=== PATIENT | female | born 1940 | race African-American/Black ===

== ENCOUNTER → 2016-10-26 | Outpatient (CLI) | payer MEDICARE ==
--- NOTE | 2016-10-26 16:09 | WOMENS IMAGING REPORT ---
EXAM DESCRIPTION: BILAT SCREENING MAMMO W/CAD COMPLETED DATE/TIME: 10/26/2016 10:50 am REASON FOR STUDY: ROUTINE SCREENING; Z12.31 Z12.31 ENCNTR SCREEN MAMMOGRAM FOR MALIGNANT NEOPLASM O F CHRISTIAN COMPARISON: Multiple since 2008 TECHNIQUE: Standard craniocaudal and mediolateral oblique views of each breast recorded using HopeLaba l acquisition. LIMITATIONS: None. FINDINGS: Findings present which are benign by mammographic criteria. No suspicious masses, calcifi cations or architectural distortion. Pertinent benign findings: Benign left breast skin calcifications Read with the assistance of CAD. .[facility] - R2 Cenova Version 1.3 .[facility] - R2 Cenova Version 1.3 .[facility] - R2 Cenova Version 2.4 .[facility] - R2 Cenova Version 2.4 .[facility] - R2 Foreign Bank[employer] Teller Version 9.2 Benign mammographic findings may include one or more of the following: Smooth masses, popcorn/rim/co arse calcifications, asymmetries, post-procedure changes, and lesions with long-standing stability. IMPRESSION: BENIGN MAMMOGRAPHIC FINDINGS. BIRADS 2 BREAST DENSITY: b. There are scattered areas of fibroglandular density. BIRAD: 2 BENIGN FINDING(S) RECOMMENDATION: ROUTINE SCREENING COMMENT: The patient has been notified of the results by letter per SA requirements. Additional no tification policies are in place for contacting patient with suspicious or incomplete findings. Quality ID #[id number]: The [employer] recommends an annual screening mammogram for women aged 40 years or over. This facility utilizes a reminder system to ensure that all patients receive reminder letters, and/or direct phone calls for appointments. This includes reminders for routine scr eening mammograms, diagnostic mammograms, or other Breast Imaging Interventions when appropriate. Th is patient will be placed in the appropriate reminder system. The [employer] (ACR) has developed recommendations for screening MRI of the breast s in certain patient populations, to be used in conjunction with mammography. Breast MRI surveillanc e may be appropriate for women with more than 20% lifetime risk of developing breast cancer as deter mined by genetic testing, significant family history of the disease, or history of mantle radiation f or Hodgkins Disease. ACR Practice Guidelines 2008. TECHNICAL DOCUMENTATION: FINDING NUMBER: (1) ASSESSMENT: (1) JOB ID: [id number] [employer]- All Rights Reserved
== END ==
LOC: WI 10:10
PROVIDERS: ATTEND Internal Medicine
DX: Z12.31 Encounter for screening mammogram for malignant neoplasm of breast (principal)
CPT/HCPCS: 77067; G0202

== ENCOUNTER → 2017-03-09 | Outpatient (CLI) | payer MEDICARE ==
--- NOTE | 2017-03-09 15:27 | RADIOLOGY REPORT (SQ) ---
EXAM DESCRIPTION: CT ABD/PELVIS WITH IV ORAL COMPLETED DATE/TIME: 03/09/2017 2:21 pm REASON FOR STUDY: ABDOMINAL PAIN GENERALIZED/GASTROPARESIS R10.84 GENERALIZED ABDOMINAL PAIN K31.84 GASTROPARESIS K57.30 DIVERTICULOSIS OF LG INT W/O PERFORATION OR ABSCESS W/O BLE COMPARISON: None. TECHNIQUE: CT scan of the abdomen and pelvis performed using helical scanning technique with dynamic intravenous contrast injection. Oral contrast. Images reviewed with lung, soft tissue, and bone win dows. Reconstructed coronal and sagittal MPR images reviewed. Delayed images for evaluation of the ur inary system also acquired. All images stored on PACS. All CT scanners at this facility use dose modulation, iterative reconstruction, and/or weight based d osing when appropriate to reduce radiation dose to as low as reasonably achievable (ALARA). [facility]: Dose Right [facility]: CareDose [facility]: Dose Right [facility]: Teradose 4D [facility]: [email or web address] CONTRAST TYPE AND DOSE: contrast/concentration: Isovue mg/ml; Total Contrast Delivered: 79.0 ml; To janes Saline Delivered: 68.0 ml RENAL FUNCTION: Creatinine 1.3 RADIATION DOSE: Up-to-date CT equipment and radiation dose reduction techniques were employed. CTDIv ol: 9.5 - 13.6 mGy. DLP: 1170 mGy-cm.. LIMITATIONS: None. FINDINGS: LOWER CHEST: No significant findings. No nodules or infiltrates. LIVER: Normal size. No masses. No dilated ducts. SPLEEN: Normal size. No focal lesions. PANCREAS: No masses. No significant calcifications. No adjacent inflammation or peripancreatic fluid collections. Pancreatic duct not dilated. GALLBLADDER: No identified stones by CT criteria. No inflammatory changes to suggest cholecystitis. ADRENAL GLANDS: No significant masses or asymmetry. RIGHT KIDNEY AND URETER: No solid masses. Small cortical cysts are present. No significant calcifi cations. No hydronephrosis or hydroureter. LEFT KIDNEY AND URETER: No solid masses. There is a 4 cm cortical cyst as well as some smaller corti cecy cysts. No significant calcifications. No hydronephrosis or hydroureter. AORTA AND VESSELS: No aneurysm. Atherosclerosis with no significant stenoses of celiac, SMA, and jannet al arteries RETROPERITONEUM: No retroperitoneal adenopathy, hemorrhage or masses. BOWEL AND PERITONEAL CAVITY: Considerable fecal material is present in the colon. APPENDIX: Normal. PELVIS: No mass. No free fluid. Normal bladder. ABDOMINAL WALL: No masses. No hernias. BONES: Lumbar scoliosis. No osseous lesions are seen. OTHER: No other significant finding. IMPRESSION: There is considerable retained fecal material suggestive of constipation. Findings as d escribed. TECHNICAL DOCUMENTATION: JOB ID: [id number] Quality ID # [id number]: Final reports with documentation of one or more dose reduction techniques (e.g., Au tomated exposure control, adjustment of the mA and/or kV according to patient size, use of iterative reconstruction technique) 2010 [employer]- All Rights Reserved
== END ==
LOC: RAD 13:47
PROVIDERS: ATTEND Internal Medicine Gastroenterology
DX: R10.84 Generalized abdominal pain (principal); K31.84 Gastroparesis; K57.30 Diverticulosis of large intestine without perforation or abscess without bleeding; R63.4 Abnormal weight loss
CPT/HCPCS: 74177; 82565

== ENCOUNTER 2017-05-17 13:49 | Observation (INO) | payer MEDICARE ==
[2017-05-17] MEDS ORDERED: IPRATROPIUM/ALBUTEROL 0.5-2.5 MG/3 ML AMPUL NEB ONE (15:28)
--- NOTE | 2017-05-17 15:30 | ER Document Report ---
ED Medical Screen (RME) - General Chief Complaint: Cough Stated Complaint: LIGHTHEADED,COUGH,CONGESTION Time Seen by Provider: 05/17/17 15:22 Mode of Arrival: Ambulatory Information source: Patient Notes: 76-year-old female presents with productive greenish white cough of 3 day duration. I have greeted and performed a rapid initial assessment of this patient. A comprehensive ED assessment and evaluation of the patient, analysis of test results and completion of the medical decision making process will be conducted by additional ED providers. PHYSICAL EXAMINATION: GENERAL: Well-appearing, well-nourished and in no acute distress. HEAD: Atraumatic, normocephalic. EYES: Pupils equal round extraocular movements intact, conjunctiva are normal. ENT: Nares patent NECK: Normal range of motion LUNGS: coarse rhonchi bilateral Musculoskeletal: Normal range of motion NEUROLOGICAL: Normal speech, normal gait. PSYCH: Normal mood, normal affect. SKIN: Warm, Dry, normal turgor, no rashes or lesions noted. TRAVEL OUTSIDE OF THE [place] IN LAST 30 DAYS: No - Related Data Allergies/Adverse Reactions: Penicillins Allergy (Mild, Verified 05/17/17 15:24) rash Sulfa (Sulfonamide Antibiotics) Allergy (Mild, Verified 05/17/17 15:24) rash latex Allergy (Mild, Uncoded 05/17/17 15:24) blistered skin,ICHING Past Medical History - Past Medical History Cardiac Medical History: Reports: Hx Heart Attack - 12/03/2002, Hx Hypercholesterolemia, Hx Hypertension - medicated Denies: Hx Coronary Artery Disease Pulmonary Medical History: Denies: Hx Asthma, Hx Bronchitis, Hx COPD, Hx Pneumonia Neurological Medical History: Denies: Hx Cerebrovascular Accident, Hx Seizures Endocrine Medical History: Reports: Hx Diabetes Mellitus Type 2 GI Medical History: Denies: Hx Hepatitis, Hx Hiatal Hernia, Hx Ulcer Musculoskeltal Medical History: Reports Hx Arthritis Infectious Medical History: Denies: Hx Hepatitis Past Surgical History: Reports: Hx Cardiac Catheterization - defibrillator, stentsx3, Hx Cholecystectomy, Hx Hysterectomy, Hx Thyroid Surgery - partial. Denies: Hx Mastectomy, Hx Open Heart Surgery, Hx Pacemaker - Immunizations Hx Diphtheria, Pertussis, Tetanus Vaccination: No Physical Exam - Vital signs Vitals: Temp Pulse Resp BP Pulse Ox 98.9 F 57 L 20 137/75 H 96 05/17/17 14:01 05/17/17 14:01 05/17/17 14:01 05/17/17 14:01 05/17/17 14:01 Course - Vital Signs Vital signs: Temp Pulse Resp BP Pulse Ox 98.9 F 57 L 20 137/75 H 96 05/17/17 14:01 05/17/17 14:01 05/17/17 14:01 05/17/17 14:01 05/17/17 14:01
[2017-05-17] MEDS ORDERED: NITROGLYCERIN 0.4 MG/TAB 25 TAB/BOTTLE SL PRN (15:50)
[2017-05-17] MEDS ORDERED: ASPIRIN 81 MG TABLET, CHEWABLE PO ONE (15:50)
--- NOTE | 2017-05-17 15:52 | ER Document Report ---
ED General - General Mode of Arrival: Ambulatory Information source: Patient TRAVEL OUTSIDE OF THE [place] IN LAST 30 DAYS: No - HPI Patient complains to provider of: Chest Pressure Onset: Yesterday Quality of pain: Fullness, Pressure Associated symptoms: Other - see notes above <JAVIER KAYE - Last Filed: 05/17/17 18:19> <TIRSOANDREYHECTOR - Last Filed: 05/17/17 18:59> - General Chief Complaint: Cough Stated Complaint: LIGHTHEADED,COUGH,CONGESTION Time Seen by Provider: 05/17/17 15:22 Notes: 76 year old female with history of GA (with stents and defibrillator), diabetes mellitus, hyperlipidemia, and hypertension presents to the ED complaining of chest pressure that started yesterday. Patient reports that she took 2 sublingual nitros yesterday for complete pain relief. This morning the patient took an aspirin with her morning medications and reported feeling a racing heart , throat pain and chest pain with cough, and lightheadedness. Patient denies nausea or vomiting. Patient's great-grandchild was seen in the ED last night for pneumonia. Last cardiac stress test 1 year ago. PCP: Dr. Herrera (JAVIER KAYE) - Related Data Allergies/Adverse Reactions: Penicillins Allergy (Mild, Verified 05/17/17 15:24) rash Sulfa (Sulfonamide Antibiotics) Allergy (Mild, Verified 05/17/17 15:24) rash latex Allergy (Mild, Uncoded 05/17/17 15:24) blistered skin,ICHING Past Medical History - General Information source: Patient - Social History Smoking Status: Former Smoker Chew tobacco use (# tins/day): No Frequency of alcohol use: Rare Drug Abuse: None Family History: Reviewed & Not Pertinent Patient has suicidal ideation: No Patient has homicidal ideation: No - Past Medical History Cardiac Medical History: Reports: Hx Heart Attack - 12/03/2002, Hx Hypercholesterolemia, Hx Hypertension - medicated Endocrine Medical History: Reports: Hx Diabetes Mellitus Type 2 Renal/ Medical History: Denies: Hx Peritoneal Dialysis Musculoskeltal Medical History: Reports Hx Arthritis Past Surgical History: Reports: Hx Cardiac Catheterization - defibrillator, stentsx3, Hx Cholecystectomy, Hx Hysterectomy, Hx Thyroid Surgery - partial - Immunizations Hx Diphtheria, Pertussis, Tetanus Vaccination: No <JAVIER KAYE - Last Filed: 05/17/17 18:19> Review of Systems - Review of Systems Constitutional: No symptoms reported EENT: See HPI, Throat pain - with cough Cardiovascular: See HPI, Chest pain - pressure and pain with cough, Heart racing , Lightheaded Respiratory: See HPI, Cough Gastrointestinal: No symptoms reported. denies: Nausea, Vomiting Genitourinary: No symptoms reported Female Genitourinary: No symptoms reported Musculoskeletal: No symptoms reported Skin: No symptoms reported Hematologic/Lymphatic: No symptoms reported Neurological/Psychological: No symptoms reported -: Yes All other systems reviewed and negative <JAVIER KAYE - Last Filed: 05/17/17 18:19> Physical Exam <JAVIER KAYE - Last Filed: 05/17/17 18:19> <HECTOR SPRING - Last Filed: 05/17/17 18:59> - Vital signs Vitals: Temp Pulse Resp BP Pulse Ox 98.9 F 57 L 20 137/75 H 96 05/17/17 14:01 05/17/17 14:01 05/17/17 14:01 05/17/17 14:01 05/17/17 14:01 - Notes Notes: GENERAL: Alert, interacts well. No acute distress. HEAD: Normocephalic, atraumatic. EYES: Pupils equal, round, and reactive to light. Extraocular movements intact. ENT: Oral mucosa moist, tongue midline. NECK: Full range of motion. Supple. Trachea midline. LUNGS: Clear to auscultation bilaterally, no wheezes, rales, or rhonchi. No respiratory distress. HEART: Mild tachycardia with occasional ectopic beats. No murmurs, gallops, or rubs. ABDOMEN: Soft, non-tender. Non-distended. Bowel sounds present in all 4 quadrants. EXTREMITIES: Moves all 4 extremities spontaneously. No edema, radial and dorsalis pedis pulses 2/4 bilaterally. No cyanosis. NEUROLOGICAL: Alert and oriented x3. Normal speech. PSYCH: Normal affect, normal mood. SKIN: Warm, dry, normal turgor. No rashes or lesions noted. (JAVIER KAYE) Course - Laboratory Result Diagrams: 05/17/17 16:40 05/17/17 16:40 - Consults Dr. Evans Time consulted: 18:06 <JAVIER KAYE - Last Filed: 05/17/17 18:19> - Laboratory Result Diagrams: 05/17/17 16:40 05/17/17 16:40 <HECTOR SPRING - Last Filed: 05/17/17 18:59> - Re-evaluation Re-evalutation: 05/17/17 18:16 CBC shows leukocytosis of 11.6, INR slightly prolonged, chemistries grossly unremarkable, initial set of cardiac enzymes negative, influenza A and B are negative, chest x-ray does not show any pneumonia. Initial EKG is nonischemic though it does have several PVCs. Given patient's cardiac history age and risk factors I do feel it would be prudent to observe this patient overnight to rule out acute coronary syndrome. I discussed this with Dr. Herrera and he agrees. No current indication for steroids or breathing treatments as there is no wheezing. Patient has been given aspirin and will be given a single dose of Lovenox. (HECTOR SPRING) - Vital Signs Vital signs: Temp Pulse Resp BP Pulse Ox 98.9 F 57 L 21 H 147/63 H 99 05/17/17 14:01 05/17/17 14:01 05/17/17 18:01 05/17/17 18:01 05/17/17 18:01 - Laboratory Laboratory results interpreted by me: 05/17/17 05/17/17 16:40 16:40 WBC 11.6 H MCV 98 H RDW 14.9 H Lymphocytes % 11.9 L Absolute Neutrophils 8.9 H Chloride 97 L Carbon Dioxide 33 H Creatine Kinase 25 L - EKG Interpretation by Me Additional EKG results interpreted by me: 05/17/17 18:17 EKG shows sinus rhythm at a rate of 83, left axis deviation, normal intervals, unifocal PVCs, no ST segment elevations or depressions, no abnormal T-wave inversions per my interpretation. (HECTOR SPRING) - Consults Dr. Evans Reason for consultation: 05/17/17 18:06 Dr. Herrera is paged. 05/17/17 18:11 Patient was discussed with Dr. Herrera and agrees to admit the patient. (JAVIER KAYE) Discharge <JAVIER KAYE - Last Filed: 05/17/17 18:19> - Discharge Admitting Provider: [facility] Unit Admitted: Telemetry <HECTOR SPRING - Last Filed: 05/17/17 18:59> - Discharge Clinical Impression: Chest pain, rule out acute myocardial infarction Condition: Stable Disposition: ADMITTED OBSERVATION Scribe Attestation: 05/17/17 18:59 I personally performed the services described in the documentation, reviewed and edited the documentation which was dictated to the scribe in my presence, and it accurately records my words and actions. (HECTOR SPRING) Scribe Documentation - Scribe Written by Scribe:: Ryan Osullivan, 05/17/2017 1631 acting as scribe for :: Tracie <JAVIER KAYE - Last Filed: 05/17/17 18:19>
--- NOTE | 2017-05-17 15:56 | RADIOLOGY REPORT (SQ) ---
EXAM DESCRIPTION: CHEST PA/LAT COMPLETED DATE/TIME: 05/17/2017 3:47 pm REASON FOR STUDY: cough congestion COMPARISON: 01/26/2015. EXAM PARAMETERS: NUMBER OF VIEWS: two views TECHNIQUE: Digital Frontal and Lateral radiographic views of the chest acquired. RADIATION DOSE: NA LIMITATIONS: none FINDINGS: LUNGS AND PLEURA: No opacities, masses or pneumothorax. No pleural effusion. MEDIASTINUM AND HILAR STRUCTURES: No masses or contour abnormalities. HEART AND VASCULAR STRUCTURES: Heart normal size. No evidence for failure. BONES: No acute findings. Chronic changes in the spine with scoliosis. HARDWARE: Defibrillator. Surgical clips in the soft tissues of the neck. OTHER: No other significant finding. IMPRESSION: NO SIGNIFICANT RADIOGRAPHIC FINDING IN THE CHEST. TECHNICAL DOCUMENTATION: JOB ID: [id number] [employer]- All Rights Reserved
[2017-05-17 16:01] LABS: A TYPE INFLUENZA AG NEGATIVE (NEGATIVE); B INFLUENZA AG NEGATIVE (NEGATIVE)
[2017-05-17 16:56] LABS: ABSOLUTE BASOPHILS # (AUTO) 0.1 10^3/uL (0.0-0.2); ABSOLUTE EOSINOPHILS # (AUTO) 0.1 10^3/uL (0.0-0.6); ABSOLUTE LYMPHOCYTES (AUTO) 1.4 10^3/uL (0.5-4.7); ABSOLUTE MONOCYTES (AUTO) 1.2 10^3/uL (0.1-1.4); ABSOLUTE NEUT (AUTO) 8.9 10^3/uL (1.7-8.2); BASOPHILS % (AUTO) 0.5 % (0-2); EOSINOPHILS % (AUTO) 1.2 % (0-6); HEMATOCRIT 37.2 % (36.0-47.0); HEMOGLOBIN 12.4 g/dL (12.0-15.5); LYMPHOCYTES % (AUTO) 11.9 % (13-45); MEAN CORPUSCULAR HEMOGLOBIN 32.4 pg (27.0-33.4); MEAN CORPUSCULAR HGB CONC 33.2 g/dL (32.0-36.0); MEAN CORPUSCULAR VOLUME 98 fl (80-97); MONOCYTES % (AUTO) 10.3 % (3-13); PLATELET COUNT 194 10^3/uL (150-450); RED BLOOD COUNT 3.81 10^6/uL (3.72-5.28); RED CELL DISTRIBUTION WIDTH 14.9 % (11.5-14.0); SEGMENTED NEUTROPHILS % (AUTO) 76.1 % (42-78); TOTAL CELLS COUNTED % (AUTO) 100 %; WHITE BLOOD COUNT 11.6 10^3/uL (4.0-10.5)
[2017-05-17 17:01] LABS: INTERNATIONAL RATION (INR) 1.14; PROTHROMBIN TIME 15.4 SEC (11.4-15.4)
[2017-05-17 17:16] LABS: ALANINE AMINOTRANSFERASE 17 U/L (9-52); ALBUMIN 4.1 g/dL (3.5-5.0); ALKALINE PHOSPHATASE 49 U/L (38-126); ANION GAP 11 (5-19); ASPARTATE AMINO TRANSFERASE 20 U/L (14-36); BILIRUBIN,DIRECT 0.3 mg/dL (0.0-0.4); BILIRUBIN,TOTAL 0.4 mg/dL (0.2-1.3); BLOOD UREA NITROGEN 12 mg/dL (7-20); CALCIUM 10.1 mg/dL (8.4-10.2); CARBON DIOXIDE 33 mmol/L (22-30); CHLORIDE 97 mmol/L (98-107); CREATINE KINASE 25 U/L (30-135); GLUCOSE 98 mg/dL (75-110); POTASSIUM 3.8 mmol/L (3.6-5.0); SODIUM 141.2 mmol/L (137-145); TOTAL PROTEIN 7.4 g/dL (6.3-8.2)
[2017-05-17 17:30] LABS: CREATINE KINASE MB < 0.22 ng/mL (<4.55); TROPONIN I < 0.012 ng/mL
[2017-05-17] MEDS ORDERED: BENZONATATE 100 MG CAPSULE PO ONE (18:18)
[2017-05-17] MEDS ORDERED: ENOXAPARIN SODIUM INJ 80 MG/0.8 ML DISP.SYRIN SUBCUT ONE (18:18)
--- NOTE | 2017-05-17 22:13 | EKG REPORT ---
SEVERITY:- ABNORMAL ECG - SINUS RHYTHM VENTRICULAR BIGEMINY LEFT ATRIAL ABNORMALITY LEFT VENTRICULAR HYPERTROPHY : Confirmed by: Eh Erickson 17-May-2017 22:13:22
[2017-05-17 23:31] LABS: CREATINE KINASE MB < 0.22 ng/mL (<4.55); TROPONIN I < 0.012 ng/mL
[2017-05-18] MEDS: BENZONATATE 100 MG CAPSULE PO PRN ×2 (02:47→10:27)
[2017-05-18 06:06] LABS: CREATINE KINASE MB < 0.22 ng/mL (<4.55); TROPONIN I < 0.012 ng/mL
[2017-05-18 11:57] VITALS: BP 145/69
[2017-05-18] MEDS ORDERED: HYDROCODONE/ACETAMINOPHEN 5-325 MG TABLET PO PRN (12:09)
[2017-05-18] MEDS ORDERED: FATTY ACIDS PO SCH (12:15)
[2017-05-18] MEDS ORDERED: OMEGA PO SCH (12:15)
[2017-05-18] MEDS ORDERED: FISH OIL PO SCH (12:15)
[2017-05-18] MEDS ORDERED: LOSARTAN POTASSIUM 50 MG TABLET PO ONE (13:00)
[2017-05-18] MEDS ORDERED: AMLODIPINE BESYLATE 5 MG TABLET PO ONE (13:00)
--- NOTE | 2017-05-18 13:13 | RADIOLOGY REPORT (SQ) ---
EXAM DESCRIPTION: CT CHEST WITHOUT COMPLETED DATE/TIME: 05/18/2017 12:46 pm REASON FOR STUDY: cough R05 COUGH COMPARISON: Chest x-ray dated 05/18/[address] of the chest dated August 2013 TECHNIQUE: CT scan performed of the chest without intravenous contrast. Images reviewed with lung, soft tissue and bone windows. Reconstructed coronal and sagittal MPR images reviewed. All images st ored on PACS. All CT scanners at this facility use dose modulation, iterative reconstruction, and/or weight based d osing when appropriate to reduce radiation dose to as low as reasonably achievable (ALARA). [facility]: Dose Right [facility]: CareDose [facility]: Dose Right [facility]: Teradose 4D [facility]: Smart [employer] RADIATION DOSE: CT Rad equipment meets quality standard of care and radiation dose reduction techniq ues were employed. CTDIvol: 8.4 mGy. DLP: 303 mGy-cm. mGy. LIMITATIONS: No technical limitations. FINDINGS: LUNGS AND PLEURA: No masses, infiltrates, pneumothorax. No pleural effusions, calcificati ons. HILAR AND MEDIASTINAL STRUCTURES: No identified masses or abnormal nodes. No obvious aneurysm. HEART AND VASCULAR STRUCTURES: There is ectasia of the thoracic aorta with vascular calcifications. Coronary artery calcifications are identified. . No pericardial effusion. UPPER ABDOMEN: No significant findings. Limited exam. THYROID AND OTHER SOFT TISSUES: Patient is status post thyroid lobectomy on the left. Small thyroid nodule is identified in the right lobe. Ultrasound may be of value for further evaluation. BONES: Thoracic scoliosis convex to the right is identified. HARDWARE: Transvenous pacemaker is identified. OTHER: Small hiatal hernia is identified. IMPRESSION: No acute consolidations or pleural effusions are identified. No pneumothorax is seen. Other findings as noted above TECHNICAL DOCUMENTATION: JOB ID: [id number] Quality ID # [id number]: Final reports with documentation of one or more dose reduction techniques (e.g., Au tomated exposure control, adjustment of the mA and/or kV according to patient size, use of iterative reconstruction technique) 2010 [employer]- All Rights Reserved
--- NOTE | 2017-05-18 13:34 | PDOC H&P ---
History of Present Illness Admission Date/PCP: 05/17/17 18:22 SANDRA DENNISON MD History of Present Illness: GERALDO DINH is a 76 year old female, patient came to the emergency room primarily for evaluation of cough associated with chest pain and lightheadedness. In the emergency room she was evaluated, because of the significant coronary artery disease with multiple coronary intervention the emergency room physician wants patient admitted to the hospital to rule out acute coronary syndrome. Patient was admitted overnight yesterday 3 sets of cardiac enzymes were negative for acute myocadial infarction. 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 There is no acute consolidations or pleural effusions. The cough is most likely from acute maxillary sinusitis, she was admitted for observation, she was given a dose of intravenous azithromycin, she will be discharged home today to continue antibiotic for a few more days Past Medical History Cardiac Medical History: Reports: Coronary Artery Disease, Myocardial Infarction - 12/03/2002, Hyperlipidema, Hypertension - medicated Endocrine Medical History: Reports: Diabetes Mellitus Type 2 Musculoskeltal Medical History: Reports: Arthritis Past Surgical History Past Surgical History: Reports: Cardiac Catheterization - defibrillator, stentsx3, Cholecystectomy, Hysterectomy, Internal Defibrillator, Pacemaker Social History Smoking Status: Former Smoker - Advance Directive Resuscitation Status: Full Code Family History Family History: Reviewed & Not Pertinent Parental Family History Reviewed: Yes Children Family History Reviewed: Yes Sibling(s) Family History Reviewed.: Yes Medication/Allergy Home Medications: Amlodipine Besylate [Norvasc 5 mg Tablet] 5 mg PO DAILY 05/18/17 Aspirin [Aspirin EC] 81 mg PO DAILY 05/18/17 Carvedilol [Coreg 25 mg Tablet] 25 mg PO Q12 05/18/17 Ergocalciferol (Vitamin D2) [Drisdol 50,000 unit (1.25MG) Capsule] 50,000 unit PO KIM@1200 05/18/17 Furosemide [Lasix 40 mg Tablet] 40 mg PO DAILY 05/18/17 Hydrocodone/Acetaminophen [[place] 5-325 mg Tablet] 1 tab PO HSP PRN 05/18/17 Insulin Detemir [Levemir Flextouch] 5 units SQ DAILY@199905/18/17 Losartan Potassium [Cozaar 100 mg Tablet] 100 mg PO DAILY 05/18/17 Metformin HCl [Glucophage] 1,000 mg PO DAILY@1200 05/18/17 [place]-3 Fatty Acids/Fish Oil [Fish Oil 1,000 mg Capsule] 1 tab PO BID 05/18/17 Potassium Chloride [Klor-Con M20] 20 meq PO QPM 05/18/17 Pravastatin Sodium [Pravachol] 40 mg PO QPM 05/18/17 Sitagliptin Phosphate [Januvia] 100 mg PO DAILY 05/18/17 Allergies/Adverse Reactions: Penicillins Allergy (Mild, Verified 05/17/17 15:24) rash Sulfa (Sulfonamide Antibiotics) Allergy (Mild, Verified 05/17/17 15:24) rash latex Allergy (Mild, Uncoded 05/17/17 15:24) blistered skin,ICHING Review of Systems Constitutional: ABSENT: chills, fever(s), headache(s), weight gain, weight loss Eyes: ABSENT: visual disturbances Ears: ABSENT: hearing changes Cardiovascular: PRESENT: chest pain Respiratory: ABSENT: cough, hemoptysis Gastrointestinal: ABSENT: abdominal pain, constipation, diarrhea, hematemesis, hematochezia, nausea, vomiting Genitourinary: ABSENT: dysuria, hematuria Musculoskeletal: ABSENT: joint swelling Integumentary: ABSENT: rash, wounds Neurological: ABSENT: abnormal gait, abnormal speech, confusion, dizziness, focal weakness, syncope Psychiatric: ABSENT: anxiety, depression, homidical ideation, suicidal ideation Endocrine: ABSENT: cold intolerance, heat intolerance, menstrual abnormalities, polydipsia, polyuria Hematologic/Lymphatic: ABSENT: easy bleeding, easy bruising, lymphadenopathy Physical Exam Vital Signs: Temp Pulse Resp BP Pulse Ox 98.8 F 101 H 16 145/69 H 97 05/18/17 11:18 05/18/17 11:18 05/18/17 11:18 05/18/17 11:18 05/18/17 11:18 Intake & Output 05/17/17 05/18/17 05/19/17 06:59 06:59 06:59 Intake Total 690 Balance 690 Weight 72.3 kg General appearance: PRESENT: no acute distress, well-developed, well-nourished Head exam: PRESENT: atraumatic, normocephalic Eye exam: PRESENT: conjunctiva pink, EOMI, PERRLA Ear exam: PRESENT: normal external ear exam Mouth exam: PRESENT: moist, tongue midline Neck exam: PRESENT: full ROM Respiratory exam: PRESENT: clear to auscultation rom Cardiovascular exam: PRESENT: RRR, +S1, +S2 Pulses: PRESENT: normal dorsalis pedis pul, +2 pedal pulses bilateral Vascular exam: PRESENT: normal capillary refill GI/Abdominal exam: PRESENT: normal bowel sounds, soft Rectal exam: PRESENT: deferred Neurological exam: PRESENT: alert, awake, oriented to person, oriented to place , oriented to time, oriented to situation, CN II-XII grossly intact Psychiatric exam: PRESENT: appropriate affect, normal mood Skin exam: PRESENT: dry, intact, warm Results Laboratory Results: 05/17/17 05/17/17 05/17/17 18:33 22:50 22:50 Creatine Kinase 21 L CK-MB (CK-2) < 0.22 Troponin I < 0.012 < 0.012 05/18/17 05/18/17 04:49 04:49 Creatine Kinase 23 L CK-MB (CK-2) < 0.22 Troponin I < 0.012 Impressions: Chest X-Ray 05/17/17 15:26 IMPRESSION: NO SIGNIFICANT RADIOGRAPHIC FINDING IN THE CHEST. Chest CT 05/18/17 00:00 IMPRESSION: No acute consolidations or pleural effusions are identified. No pneumothorax is seen. Other findings as noted above Assessment & Plan - Diagnosis (1) Chest pain Qualifiers: Chest pain type: unspecified Qualified Code(s): R07.9 - Chest pain, unspecified Is this a current diagnosis for this admission?: Yes (2) Acute maxillary sinusitis Qualifiers: Recurrence: non-recurrent Qualified Code(s): J01.00 - Acute maxillary sinusitis, unspecified Is this a current diagnosis for this admission?: Yes (3) Coronary artery disease Qualifiers: Coronary Disease-Associated Artery/Lesion type: [place] artery [place] vs. transplanted heart: [place] heart Associated angina: without angina Qualified Code(s): I25.10 - Atherosclerotic heart disease of [place] coronary artery without angina pectoris Is this a current diagnosis for this admission?: Yes - Plan Summary Plan Summary: Patient was admitted for observation, for evaluation of cough associated with chest pain, because of the history of coronary artery disease with multiple stent placement, it was felt that patient needed to be admitted to rule out acute coronary syndrome. The chest pain is probably related to the cough, the cough is most likely from acute axillary sinusitis
--- NOTE | 2017-05-18 13:38 | PDOC DISCHARGE SUMMARY ---
General - Admit/Disc Date/PCP Admission Date/Primary Care Provider: 05/17/17 18:22 SANDRA DENNISON MD Discharge Date: 05/18/17 - Discharge Diagnosis (1) Chest pain Is this a current diagnosis for this admission?: Yes (2) Acute maxillary sinusitis Is this a current diagnosis for this admission?: Yes (3) Coronary artery disease Is this a current diagnosis for this admission?: Yes - Additional Information Resuscitation Status: Full Code Home Medications: Amlodipine Besylate [Norvasc 5 mg Tablet] 5 mg PO DAILY 05/18/17 Aspirin [Aspirin EC] 81 mg PO DAILY 05/18/17 Carvedilol [Coreg 25 mg Tablet] 25 mg PO Q12 05/18/17 Ergocalciferol (Vitamin D2) [Drisdol 50,000 unit (1.25MG) Capsule] 50,000 unit PO KIM@119905/18/17 Furosemide [Lasix 40 mg Tablet] 40 mg PO DAILY 05/18/17 Hydrocodone/Acetaminophen [[place] 5-325 mg Tablet] 1 tab PO HSP PRN 05/18/17 Insulin Detemir [Levemir Flextouch] 5 units SQ DAILY@199905/18/17 Losartan Potassium [Cozaar 100 mg Tablet] 100 mg PO DAILY 05/18/17 Metformin HCl [Glucophage] 1,000 mg PO DAILY@119905/18/17 [place]-3 Fatty Acids/Fish Oil [Fish Oil 1,000 mg Capsule] 1 tab PO BID 05/18/17 Potassium Chloride [Klor-Con M20] 20 meq PO QPM 05/18/17 Pravastatin Sodium [Pravachol] 40 mg PO QPM 05/18/17 Sitagliptin Phosphate [Januvia] 100 mg PO DAILY 05/18/17 History of Present Illness History of Present Illness: GERALDO DINH is a 76 year old female, patient came to the emergency room primarily for evaluation of cough associated with chest pain and lightheadedness. In the emergency room she was evaluated, because of the significant coronary artery disease with multiple coronary intervention the emergency room physician wants patient admitted to the hospital to rule out acute coronary syndrome. Patient was admitted overnight yesterday 3 sets of cardiac enzymes were negative for acute myocadial infarction. 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 There is no acute consolidations or pleural effusions. The cough is most likely from acute maxillary sinusitis, she was admitted for observation, she was given a dose of intravenous azithromycin, she will be discharged home today to continue antibiotic for a few more days Hospital Course Hospital Course: Patient was admitted for the management of chest pain associated with cough, the cough is productive of sputum, CT chest was done it was negative for any acute pulmonary disease. She was treated with a dose of IV azithromycin. 3 sets of cardiac enzymes was negative for acute [place] Physical Exam Vital Signs: Temp Pulse Resp BP Pulse Ox 98.8 F 101 H 16 145/69 H 97 05/18/17 11:18 05/18/17 11:18 05/18/17 11:18 05/18/17 11:18 05/18/17 11:18 Intake & Output 05/17/17 05/18/17 05/19/17 06:59 06:59 06:59 Intake Total 690 Balance 690 Weight 72.3 kg General appearance: PRESENT: no acute distress, well-developed, well-nourished Head exam: PRESENT: atraumatic, normocephalic Eye exam: PRESENT: conjunctiva pink, EOMI, PERRLA. ABSENT: scleral icterus Ear exam: PRESENT: normal external ear exam Mouth exam: PRESENT: moist, tongue midline Neck exam: PRESENT: full ROM Respiratory exam: PRESENT: clear to auscultation rom Cardiovascular exam: PRESENT: RRR, +S1, +S2 Pulses: PRESENT: normal dorsalis pedis pul, +2 pedal pulses bilateral Vascular exam: PRESENT: normal capillary refill GI/Abdominal exam: PRESENT: normal bowel sounds, soft Rectal exam: PRESENT: deferred Neurological exam: PRESENT: alert, awake, oriented to person, oriented to place , oriented to time, oriented to situation, CN II-XII grossly intact Psychiatric exam: PRESENT: appropriate affect, normal mood Skin exam: PRESENT: dry, intact, warm Results Laboratory Results: 05/17/17 05/17/17 05/17/17 18:33 22:50 22:50 Creatine Kinase 21 L CK-MB (CK-2) < 0.22 Troponin I < 0.012 < 0.012 05/18/17 05/18/17 04:49 04:49 Creatine Kinase 23 L CK-MB (CK-2) < 0.22 Troponin I < 0.012 Impressions: Chest X-Ray 05/17/17 15:26 IMPRESSION: NO SIGNIFICANT RADIOGRAPHIC FINDING IN THE CHEST. Chest CT 05/18/17 00:00 IMPRESSION: No acute consolidations or pleural effusions are identified. No pneumothorax is seen. Other findings as noted above
[2017-05-18] MEDS ORDERED: AZITHROMYCIN 500 MG in DEXTROSE 5%-WATER 250 ML IV SCH (14:00)
[2017-05-18] MEDS ORDERED: METFORMIN HCL 500 MG TABLET PO SCH (17:00)
[2017-05-18] MEDS ORDERED: (PENDING PHARMACY ID) (Pravastatin Sodium [Pravachol] 40 MG) PO SCH (18:00)
[2017-05-18] MEDS ORDERED: (PENDING PHARMACY ID) (Potassium Chloride [Klor-Con M20] 20 MEQ) PO SCH (18:00)
[2017-05-18] MEDS ORDERED: OMEGA-3 ACID ETHYL ESTERS 1 GM CAPSULE PO SCH (18:00)
[2017-05-18] MEDS ORDERED: ATORVASTATIN CALCIUM 10 MG TABLET PO SCH (18:00)
[2017-05-18] MEDS ORDERED: POTASSIUM CHLORIDE 10 MEQ TABLET.SA PO SCH (18:00)
[2017-05-18] MEDS ORDERED: INSULIN DETEMIR 100 UNIT/ML 3 ML PEN SUBCUT SCH (20:00)
[2017-05-18] MEDS ORDERED: CARVEDILOL 12.5 MG TABLET PO SCH (22:00)
[2017-05-19] MEDS ORDERED: FUROSEMIDE 40 MG TABLET PO SCH (10:00)
[2017-05-19] MEDS ORDERED: SITAGLIPTIN PHOSPHATE 50 MG TABLET PO SCH (10:00)
[2017-05-19] MEDS ORDERED: ASPIRIN 81 MG TABLET, ENT COATED PO SCH (10:00)
[2017-05-19] MEDS ORDERED: LOSARTAN POTASSIUM 50 MG TABLET PO SCH (10:00)
[2017-05-19] MEDS ORDERED: AMLODIPINE BESYLATE 5 MG TABLET PO SCH (10:00)
[2017-05-23] MEDS ORDERED: ERGOCALCIFEROL (VITAMIN D2) 50000 UNIT (1.25 MG) CAPSULE PO SCH (12:00)
== END 2017-05-18 16:28 | disposition home or self-care (01) ==
LOC: ER 13:49 → EH 18:22 → 5 20:16
PROVIDERS: ADMIT Internal Medicine; ATTEND Internal Medicine
DX: R07.89 Other chest pain (principal); J01.00 Acute maxillary sinusitis, unspecified; I25.10 Atherosclerotic heart disease of native coronary artery without angina pectoris; R05 Cough; E11.9 Type 2 diabetes mellitus without complications; I25.2 Old myocardial infarction; E78.5 Hyperlipidemia, unspecified; I10 Essential (primary) hypertension; Z79.899 Other long term (current) drug therapy; Z90.49 Acquired absence of other specified parts of digestive tract; Z95.810 Presence of automatic (implantable) cardiac defibrillator; Z87.891 Personal history of nicotine dependence; Z79.82 Long term (current) use of aspirin; Z79.4 Long term (current) use of insulin; Z95.5 Presence of coronary angioplasty implant and graft
CPT/HCPCS: 93005; 94640; 99285; 96372; 36415 ×2; 82553 ×2; 82962; 82550 ×2; 85025; 85610; 80053; 84484 ×2; 87804; 71020; 71250; 93010; A9270 ×6; J7060; J0456; J1650; J1815; J7620

== ENCOUNTER → 2017-06-09 | Outpatient (CLI) | payer MEDICARE ==
--- NOTE | 2017-06-09 13:56 | RADIOLOGY REPORT (SQ) ---
EXAM DESCRIPTION: NM GASTRIC EMPTYING STUDY COMPLETED DATE/TIME: 06/09/2017 12:35 pm REASON FOR STUDY: GASTROPARESIS (K31.84) K31.84 GASTROPARESIS COMPARISON: None. RADIONUCLIDE AND DOSE: 2.18 millicuries Tc-99m Sulfur Colloid. The route of agent administration: Oral. TECHNIQUE: Serial images acquired to 4 hours with each image recorded over a 30 minute time frame. I mage intensity values plotted with respect to time with linear regression algorithm. LIMITATIONS: None. FINDINGS: Patient was observed for 4 hours. Gastric emptying at 60 minutes was 35%. Gastric emptying at 90 minutes was 53%. Gastric emptying at 120 minutes was 70% Gastric emptying at 180 minutes with 100% Gastric emptying at 240 minutes was 100%. IMPRESSION: NORMAL GASTRIC EMPTYING. TECHNICAL DOCUMENTATION: JOB ID: [id number] [employer]- All Rights Reserved
== END ==
LOC: RAD 07:51
PROVIDERS: ATTEND Internal Medicine Gastroenterology
DX: K31.84 Gastroparesis (principal)
CPT/HCPCS: 78264; A9541

== ENCOUNTER 2017-08-08 12:24 | Emergency (ER) | payer MEDICARE ==
--- NOTE | 2017-08-08 13:10 | ER Document Report ---
ED Respiratory Problem - General Chief Complaint: Cough Stated Complaint: CHEST PAIN Time Seen by Provider: 08/08/17 12:54 Mode of Arrival: Ambulatory Information source: Patient TRAVEL OUTSIDE OF THE [place] IN LAST 30 DAYS: No - Related Data Allergies/Adverse Reactions: Penicillins Allergy (Mild, Verified 05/17/17 15:24) rash Sulfa (Sulfonamide Antibiotics) Allergy (Mild, Verified 05/17/17 15:24) rash latex Allergy (Mild, Uncoded 05/17/17 15:24) blistered skin,ICHING Past Medical History - Social History Smoking Status: Former Smoker Chew tobacco use (# tins/day): No Frequency of alcohol use: None Drug Abuse: None Family History: Reviewed & Not Pertinent Patient has suicidal ideation: No Patient has homicidal ideation: No - Past Medical History Cardiac Medical History: Reports: Hx Coronary Artery Disease, Hx Heart Attack - 12/03/2002, Hx Hypercholesterolemia, Hx Hypertension - medicated Pulmonary Medical History: Denies: Hx Asthma, Hx Bronchitis, Hx COPD, Hx Pneumonia Neurological Medical History: Denies: Hx Cerebrovascular Accident, Hx Seizures Endocrine Medical History: Reports: Hx Diabetes Mellitus Type 2 Renal/ Medical History: Denies: Hx Peritoneal Dialysis GI Medical History: Denies: Hx Hepatitis, Hx Hiatal Hernia, Hx Ulcer Musculoskeltal Medical History: Reports Hx Arthritis Traumatic Medical History: Reports: Other - FELL & STRUCK HEAD APPROX. 1 YEAR AGO, HAS HAD EPISODIC H.A. SINCE Infectious Medical History: Denies: Hx Hepatitis Past Surgical History: Reports: Hx Cardiac Catheterization - defibrillator, stentsx3, Hx Cholecystectomy, Hx Hysterectomy, Hx Internal Defibrillator, Hx Pacemaker, Hx Thyroid Surgery - partial. Denies: Hx Mastectomy, Hx Open Heart Surgery - Immunizations Hx Diphtheria, Pertussis, Tetanus Vaccination: No Review of Systems - Review of Systems Constitutional: No symptoms reported. denies: Chills, Fever EENT: No symptoms reported Cardiovascular: See HPI Respiratory: See HPI Gastrointestinal: No symptoms reported Genitourinary: No symptoms reported Female Genitourinary: Post menopausal Musculoskeletal: No symptoms reported Skin: No symptoms reported Neurological/Psychological: See HPI, Headaches Physical Exam - Vital signs Vitals: Temp 98.3 F 08/08/17 12:27 Interpretation: Normal. No: Tachycardic, Hypoxic, Tachypneic, Febrile - General General appearance: Appears well, Alert In distress: None - HEENT Head: Normocephalic Eyes: Normal Conjunctiva: Normal Ears: Normal Nasal: Normal Mouth/Lips: Normal Mucous membranes: Normal Neck: Normal - Respiratory Respiratory status: No respiratory distress Breath sounds: Normal - Cardiovascular Rhythm: Regular Heart sounds: Normal auscultation Murmur: No - Abdominal Inspection: Normal Distension: No distension - Back Back: Normal - Extremities General upper extremity: Normal inspection General lower extremity: Normal inspection. No: Tender, Edema - Neurological Neuro grossly intact: Yes Cognition: Normal Orientation: AAOx4 - Psychological Associated symptoms: Normal affect, Normal mood - Skin Skin Temperature: Warm Skin Moisture: Dry Skin Color: Normal Skin Turgor: Elastic Course - Vital Signs Vital signs: Temp Pulse Resp BP Pulse Ox 98.3 F 24 H 153/90 H 100 08/08/17 12:27 08/08/17 17:55 08/08/17 17:55 08/08/17 17:55 - Laboratory Result Diagrams: 08/08/17 13:43 08/08/17 13:43 Laboratory results interpreted by me: 08/08/17 08/08/17 08/08/17 13:43 13:43 13:43 RBC 3.64 L Hct 35.2 L RDW 14.7 H Carbon Dioxide 32 H BUN 24 H Est GFR (Non-Af Amer) 51 L Creatine Kinase 22 L NT-Pro-B Natriuret Pep 2490 H - EKG Interpretation by Me EKG shows normal: Sinus rhythm. abnormal: QRS Complexes - ? OLD INF. M.I. Rate: Normal Rhythm: PVC's P Waves: LAE When compared to previous EKG there are: No significant change Discharge - Discharge Clinical Impression: Fluid overload Qualifiers: Hypervolemia type: unspecified Qualified Code(s): E87.70 - Fluid overload, unspecified Hypertension Qualifiers: Hypertension type: essential hypertension Qualified Code(s): I10 - Essential ( primary) hypertension Headache Qualifiers: Headache type: unspecified Headache chronicity pattern: episodic headache Intractability: not intractable Qualified Code(s): R51 - Headache Condition: Stable Disposition: HOME, SELF-CARE Instructions: Congestive Heart Failure ([facility]), Diuretic ([facility]), Headache ([facility]), High Blood Pressure, Requiring Treatment ([facility]) Additional Instructions: INCREASE YOUR LASIX (FUROSEMIDE) TO 40 mg TWICE A DAY. AVOID SALT IN YOUR DIET. CONTINUE YOUR OTHER MEDS USUAL. FOLLOW UP WITH DR. DENNISON, CALL OFFICE TOMORROW FOR APPT. Referrals: SANDRA DENNISON MD [Primary Care Provider] - Follow up tomorrow
[2017-08-08 13:36] LABS: APPEARANCE,URINE CLEAR; BILIRUBIN,URINE NEGATIVE (NEGATIVE); COLOR,URINE COLORLESS; GLUCOSE, URINE NEGATIVE (NEGATIVE); KETONES,URINE NEGATIVE (NEGATIVE); LEUKOCYTE ESTERASE,URINE NEGATIVE (NEGATIVE); NITRITE,URINE NEGATIVE (NEGATIVE); PROTEIN,URINE NEGATIVE (NEGATIVE); URINE SPECIFIC GRAVITY 1.004; UROBILINOGEN,URINE NEGATIVE mg/dL (<2.0)
--- NOTE | 2017-08-08 13:59 | RADIOLOGY REPORT (SQ) ---
EXAM DESCRIPTION: CHEST PA/LAT COMPLETED DATE/TIME: 08/08/2017 1:15 pm REASON FOR STUDY: cough COMPARISON: Two-view chest 05/17/2017, 01/26/2015 EXAM PARAMETERS: NUMBER OF VIEWS: two views TECHNIQUE: Digital Frontal and Lateral radiographic views of the chest acquired. RADIATION DOSE: NA LIMITATIONS: none FINDINGS: LUNGS AND PLEURA: Trace bilateral pleural effusions. Unruly lines are present from mild interstitial edema. No dense lung parenchymal consolidation worrisome for pneumonia. No pneumothorax. MEDIASTINUM AND HILAR STRUCTURES: No masses or contour abnormalities. HEART AND VASCULAR STRUCTURES: Mild to moderate cardiomegaly. Radiopaque LAD stents. BONES: No acute findings. HARDWARE: Left-sided single lead pacemaker OTHER: No other significant finding. IMPRESSION: Mild fluid overload or congestive failure with trace pleural effusions and mild intersti tial edema TECHNICAL DOCUMENTATION: JOB ID: [id number] [employer]- All Rights Reserved Reading location - IP/workstation name: [email or web address]
[2017-08-08 14:07] LABS: ABSOLUTE EOSINOPHILS # (AUTO) 0.3 10^3/uL (0.0-0.6); ABSOLUTE LYMPHOCYTES (AUTO) 3.4 10^3/uL (0.5-4.7); ABSOLUTE MONOCYTES (AUTO) 0.7 10^3/uL (0.1-1.4); ABSOLUTE NEUT (AUTO) 5.7 10^3/uL (1.7-8.2); BASOPHILS % (AUTO) 0.5 % (0-2); EOSINOPHILS % (AUTO) 2.6 % (0-6); HEMATOCRIT 35.2 % (36.0-47.0); LYMPHOCYTES % (AUTO) 33.5 % (13-45); MEAN CORPUSCULAR HEMOGLOBIN 32.9 pg (27.0-33.4); MEAN CORPUSCULAR VOLUME 97 fl (80-97); MONOCYTES % (AUTO) 6.8 % (3-13); PLATELET COUNT 203 10^3/uL (150-450); RED BLOOD COUNT 3.64 10^6/uL (3.72-5.28); RED CELL DISTRIBUTION WIDTH 14.7 % (11.5-14.0); SEGMENTED NEUTROPHILS % (AUTO) 56.6 % (42-78); TOTAL CELLS COUNTED % (AUTO) 100 %
[2017-08-08 14:25] LABS: ALANINE AMINOTRANSFERASE 37 U/L (9-52); ALKALINE PHOSPHATASE 47 U/L (38-126); ANION GAP 9 (5-19); ASPARTATE AMINO TRANSFERASE 23 U/L (14-36); BILIRUBIN,DIRECT 0.3 mg/dL (0.0-0.4); BILIRUBIN,TOTAL 0.3 mg/dL (0.2-1.3); BLOOD UREA NITROGEN 24 mg/dL (7-20); CALCIUM 9.2 mg/dL (8.4-10.2); CARBON DIOXIDE 32 mmol/L (22-30); CHLORIDE 103 mmol/L (98-107); CREATINE KINASE 22 U/L (30-135); GLUCOSE 82 mg/dL (75-110); POTASSIUM 3.9 mmol/L (3.6-5.0); SODIUM 143.6 mmol/L (137-145); TOTAL PROTEIN 6.9 g/dL (6.3-8.2)
[2017-08-08 14:36] LABS: CREATINE KINASE MB 0.24 ng/mL (<4.55); TROPONIN I < 0.012 ng/mL
--- NOTE | 2017-08-08 15:22 | EKG REPORT ---
SEVERITY:- ABNORMAL ECG - SINUS RHYTHM PAIRED VENTRICULAR PREMATURE COMPLEXES LEFT ATRIAL ABNORMALITY PROBABLE INFERIOR INFARCT, AGE INDETERMINATE : Confirmed by: Talat Sosa MD 08-Aug-2017 15:22:36
[2017-08-08] MEDS ORDERED: ACETAMINOPHEN 325 MG TABLET PO ONE (17:20)
[2017-08-08 18:01] VITALS: BP 153/90
== END 2017-08-08 18:02 | disposition home or self-care (01) ==
LOC: ER 12:24
DX: E87.70 Fluid overload, unspecified (principal); I10 Essential (primary) hypertension; R51 Headache; I49.3 Ventricular premature depolarization; I25.10 Atherosclerotic heart disease of native coronary artery without angina pectoris; I25.2 Old myocardial infarction; E11.9 Type 2 diabetes mellitus without complications; Z88.0 Allergy status to penicillin; Z88.2 Allergy status to sulfonamides; Z91.040 Latex allergy status; Z87.891 Personal history of nicotine dependence; Z95.810 Presence of automatic (implantable) cardiac defibrillator; Z95.5 Presence of coronary angioplasty implant and graft
CPT/HCPCS: 93005; 99284; 36415; 87040; 82553; 82550; 85025; 80053; 81001; 84484; 83880; 71046; 93010; A9270

== ENCOUNTER → 2017-10-27 | Outpatient (CLI) | payer MEDICARE ==
--- NOTE | 2017-10-27 10:56 | WOMENS IMAGING REPORT ---
EXAM DESCRIPTION: 3D SCREENING MAMMO BILAT COMPLETED DATE/TIME: 10/27/2017 10:20 am REASON FOR STUDY: SCREENING MAMMO Z12.31 ENCNTR SCREEN MAMMOGRAM FOR MALIGNANT NEOPLASM OF [place] COMPARISON: 10/26/2016 and 10/24/2015. TECHNIQUE: Standard craniocaudal and mediolateral oblique views of each breast recorded using digita l acquisition and breast tomosynthesis. LIMITATIONS: None. FINDINGS: No masses, calcifications or architectural distortion. No areas of suspicion. Read with the assistance of CAD. [facility] - R2 Cenova Version 1.3 .[facility] - R2 Cenova Version 1.3 .[facility] - R2 Cenova Version 2.4 .[facility] - R2 Cenova Version 2.4 .[facility] - R2 Upholstery Department Supervisor Version 9.2 IMPRESSION: NORMAL MAMMOGRAM. BIRADS 1. BREAST DENSITY: b. There are scattered areas of fibroglandular density. BIRAD: 1 NEGATIVE RECOMMENDATION: ROUTINE SCREENING COMMENT: The patient has been notified of the results by letter per [facility] requirements. Additional no tification policies are in place for contacting patient with suspicious or incomplete findings. Quality ID #[id number]: The [employer] recommends an annual screening mammogram for women aged 40 years or over. This facility utilizes a reminder system to ensure that all patients receive reminder letters, and/or direct phone calls for appointments. This includes reminders for routine scr eening mammograms, diagnostic mammograms, or other Breast Imaging Interventions when appropriate. Th is patient will be placed in the appropriate reminder system. The [employer] (ACR) has developed recommendations for screening MRI of the breast s in certain patient populations, to be used in conjunction with mammography. Breast MRI surveillanc e may be appropriate for women with more than 20% lifetime risk of developing breast cancer as deter mined by genetic testing, significant family history of the disease, or history of mantle radiation f or Hodgkins Disease. ACR Practice Guidelines 2008. DBT Technology DBT is a type of tomographic mammography. With conventional mammography, overlapping breast tissue ma y make lesions difficult to detect, even with good compression. DBT uses an x-ray tube that rotates a round the breast, taking images at different angles. These images are then combined to create thin sl ices of the breast that the radiologist can view as a 3D reconstruction. The tu.nr unit can perform full-field digital mammograms (2D imaging); or DBT (3D imaging); or both, in a combination mode that quickly performs both the mammogram and the tomosynthesis scan while the breast is still compressed. PQRS 6045F: Fluoroscopic imaging is not utilized for breast tomosynthesis. TECHNICAL DOCUMENTATION: FINDING NUMBER: (1) ASSESSMENT: (1) JOB ID: [id number] [employer]- All Rights Reserved Reading location - IP/workstation name: [facility]-[email or web address]
== END ==
LOC: WI 10:09
PROVIDERS: ATTEND Internal Medicine
DX: Z12.31 Encounter for screening mammogram for malignant neoplasm of breast (principal)
CPT/HCPCS: 77063; 77067

== ENCOUNTER 2017-11-04 15:52 | Emergency (ER) | payer MEDICARE ==
--- NOTE | 2017-11-04 16:36 | ER Document Report ---
ED General - General Chief Complaint: Fall Stated Complaint: FALL Time Seen by Provider: 11/04/17 16:25 TRAVEL OUTSIDE OF THE [place] IN LAST 30 DAYS: No - HPI Notes: Patient is a 77-year-old female with a history of insulin-dependent diabetes, hypertension, defibrillator who presents to the ED with daughter complaining of a headache, neck pain, right wrist pain, right rib pain, and lower back pain status post fall prior to arrival. Patient states that she lost her footing and fell on 3 cement steps in front of her. Patient states that she has been ambulatory since then without any difficulties. The pain in her neck, head, back, wrist, ribs do not radiate. She is otherwise able to drink fluids without difficulties. Patient states that she is not on any blood thinners. No other concerns or complaints at this time. Denies any fever, changes in vision/speech/mentation/hearing, URI, sore throat, chest pain, palpitations, syncope, cough, shortness of breath, wheeze, dyspnea, abdominal pain, nausea/ vomiting/diarrhea, urinary retention, dysuria, hematuria, loss of control of bowel or bladder, numbness/tingling, saddle anesthesia, muscle paralysis/ weakness, or rash. - Related Data Allergies/Adverse Reactions: Penicillins Allergy (Mild, Verified 11/04/17 15:54) rash Sulfa (Sulfonamide Antibiotics) Allergy (Mild, Verified 11/04/17 15:54) rash latex Allergy (Mild, Uncoded 11/04/17 15:54) blistered skin,ICHING Past Medical History - Social History Smoking Status: Never Smoker Family History: Reviewed & Not Pertinent - Past Medical History Cardiac Medical History: Reports: Hx Coronary Artery Disease, Hx Heart Attack - 12/03/2002, Hx Hypercholesterolemia, Hx Hypertension - medicated Pulmonary Medical History: Denies: Hx Asthma, Hx Bronchitis, Hx COPD, Hx Pneumonia Neurological Medical History: Denies: Hx Cerebrovascular Accident, Hx Seizures Endocrine Medical History: Reports: Hx Diabetes Mellitus Type 2 Renal/ Medical History: Denies: Hx Peritoneal Dialysis GI Medical History: Denies: Hx Hepatitis, Hx Hiatal Hernia, Hx Ulcer Musculoskeltal Medical History: Reports Hx Arthritis Infectious Medical History: Denies: Hx Hepatitis Past Surgical History: Reports: Hx Cardiac Catheterization - defibrillator, stentsx3, Hx Cholecystectomy, Hx Hysterectomy, Hx Internal Defibrillator, Hx Pacemaker, Hx Thyroid Surgery - partial. Denies: Hx Mastectomy, Hx Open Heart Surgery - Immunizations Hx Diphtheria, Pertussis, Tetanus Vaccination: No Review of Systems - Review of Systems -: Yes All other systems reviewed and negative Physical Exam - Vital signs Vitals: Temp Pulse Resp BP Pulse Ox 99.1 F 85 22 H 155/73 H 96 11/04/17 15:59 11/04/17 15:59 11/04/17 15:59 11/04/17 15:59 11/04/17 15:59 - Notes Notes: PHYSICAL EXAMINATION: accompanied by female nurse GENERAL: Well-appearing, well-nourished and in no acute distress. A&Ox4. Answers questions appropriately. HEAD: Atraumatic, normocephalic. Non-tender. No collado sign EYES: Pupils equal round and reactive to light, extraocular movements intact, sclera anicteric, conjunctiva are normal. No raccoon eyes/entrapment. No nystagmus. Vis morgan grossly intact. ENT: EAC clear b/l. TM's intact b/l without erythema, fluid, or perforation. Nares patent and without discharge. oropharynx clear without exudates. No tonsilar hypertrophy or erythema. Moist mucous membranes. No sinus tenderness. No hemotympanum/CSF discharge. NECK: Normal range of motion, supple without lymphadenopathy. No rigidity. + mild tenderness to the inferior c-spine midline. Chest: No flail chest. equal rise/fall. + mild tenderness to the rt lateral rib area w/o deformity or ecchymosis. LUNGS: Breath sounds clear to auscultation bilaterally and equal. No wheezes rales or rhonchi. HEART: Regular rate and rhythm without murmurs, rubs, gallops. ABDOMEN: Soft, nontender, nondistended abdomen. No guarding, no rebound. No masses appreciated. Normal bowel sounds present. No CVA tenderness bilaterally. No ecchymosis. Musculoskeletal: Ext b/l: FROM to passive/active. Strength 5+/5. No deficits noted. + mild tenderness to the dorsal right hand. No obvious ecchymosis, swelling, erythema, or deformity. Back: FROM to passive/active. Strength 5+/5. + tenderness to the Midline L- spine and rt paraspinal mm. + rt SI jt tenderness. SLR negative b/l. Extremities: No cyanosis, clubbing, or edema b/l. Peripheral pulses 2+. Capillary refill less than 2 seconds. NEUROLOGICAL: NIH 0. GCS 15. Cranial nerves grossly intact. Normal speech, normal gait. Normal sensory, motor exams. Reflexes 2+ b/l. KIM's negative. Pronator drift negative. Heel/gao, finger/nose wnl. Rhomberg neg. PSYCH: Normal mood, normal affect. SKIN: small abrasion rt nostril. Course - Re-evaluation Re-evalutation: 11/04/17 16:41 Imaging ordered. C collar placed. Consulted with Dr. Johnson, XR for L-spine at this time. Agrees with other CT orders and current plan. 11/04/17 17:38 Patient is an afebrile, well-hydrated, 77-year-old female who presents to the ED with cervicalgia, low back pain, and contusions to her rib, hand status post fall. Vitals are acceptable. PE is otherwise unremarkable for any focal neurological deficits, neurovascular compromise, obvious tendon/ligament rupture , obvious fracture/dislocation. NIH 0, GCS 15, cranial nerves grossly intact. Patient is nontoxic-appearing and is tolerating p.o. without difficulties. Patient has ambulated around the room without difficulties forming. CT scan of the head and the neck were unremarkable for any acute pathology aside from some lymphadenopathy noted which is related to the patient to have followed by her family doctor. I did advise patient that she needs to have this followed as lymphadenopathy in those areas could represent cancer. X-ray of the hand, chest , ribs, L-spine were unremarkable for any acute pathology otherwise. No other labs or imaging warranted at this time based on H&P. Low suspicion for any meningitis, intracranial hemorrhage, ischemic stroke, fracture, expanding/ ruptured AAA, cauda equina syndrome, epidural mass lesion/abscess, herniated disc causing severe spinal stenosis, or other systemic infection at this time. Patient is aware that her condition can change from initial presentation and that she needs monitor symptoms closely for any acute changes. I will send her home with a prescription for naproxen. Conservative measures otherwise for symptoms. Recheck with your PCM in 3-5 days. Consider consult orthopedics. Return to the ED with any worsening/concerning symptoms otherwise as reviewed discharge. Patient is in agreement. - Vital Signs Vital signs: Temp Pulse Resp BP Pulse Ox 99.1 F 85 22 H 155/73 H 96 11/04/17 15:59 11/04/17 15:59 11/04/17 15:59 11/04/17 15:59 11/04/17 15:59 Discharge - Discharge Clinical Impression: Cervicalgia, Hand pain, right, Rib pain on right side Head injury Qualifiers: Encounter type: initial encounter Qualified Code(s): S09.90XA - Unspecified injury of head, initial encounter Low back pain Qualifiers: Chronicity: acute Back pain laterality: midline Sciatica presence: without sciatica Qualified Code(s): M54.5 - Low back pain Condition: Stable Disposition: HOME, SELF-CARE Instructions: Head Injury Precautions ([facility]), Rib Contusion ([facility]), Contusion ( [facility]), Low Back Pain ([facility]) Additional Instructions: As a reminder that there were some lymph nodes noted to her neck and upper chest area that he should have evaluated further with your primary care doctor. Rest, Ice, Compression, Elevation Tylenol/ibuprofen as needed Light stretches daily Strength exercises as able Moist heat and massage may help F/u with your PCP in 3-5 days for a recheck Consider consult(s) with Orthopedics/physical therapy for ongoing/worsening symptoms Return to the ED with any worsening symptoms and/or development of fever, headache, changes in behavior/mentation/vision/speech, chest pain, palpitations , syncope, shortness of breath, trouble breathing, abdominal pain, n/v/d, blood in stool/urine, loss of control of bowel/bladder, urinary retention, muscle weakness/paralysis, saddle anesthesia, numbness/tingling, or other worsening symptoms that are concerning to you. Prescriptions: Naproxen 500 mg PO BID PRN #30 tablet PRN Reason: Forms: Elevated Blood Pressure Referrals: SANDRA DENNISON MD [Primary Care Provider] - Follow up in 3-[address] [facility] [Provider Group] - Follow up as needed
--- NOTE | 2017-11-04 17:25 | RADIOLOGY REPORT (SQ) ---
EXAM DESCRIPTION: CT HEAD WITHOUT COMPLETED DATE/TIME: 11/04/2017 5:14 pm REASON FOR STUDY: pain s/p fall/injury COMPARISON: CT brain 01/26/2015, 09/03/2013, 01/03/2013 TECHNIQUE: Axial images acquired through the brain without intravenous contrast. Images reviewed wi th bone, brain and subdural windows. Additional sagittal and coronal reconstructions were generated. Images stored on PACS. All CT scanners at this facility use dose modulation, iterative reconstruction, and/or weight based d osing when appropriate to reduce radiation dose to as low as reasonably achievable (ALARA). [facility]: Dose Right [facility]: CareDose [facility]: Dose Right [facility]: Teradose 4D [facility]: [employer] RADIATION DOSE: CT Rad equipment meets quality standard of care and radiation dose reduction techniq ues were employed. CTDIvol: 53.2 mGy. DLP: 1044 mGy-cm. mGy. LIMITATIONS: None. FINDINGS: VENTRICLES: Normal size and contour. CEREBRUM: No masses. No hemorrhage. No midline shift. No evidence for acute infarction. Spotty sta ble bifrontal areas of low density in the white matter most likely chronic small vessel ischemic hill ges. CEREBELLUM: No masses. No hemorrhage. No alteration of density. No evidence for acute infarction. EXTRAAXIAL SPACES: No fluid collections. No masses. ORBITS AND GLOBE: No intra- or extraconal masses. Globes post cataract surgery. CALVARIUM: No fracture. PARANASAL SINUSES: No fluid or mucosal thickening. SOFT TISSUES: No mass or hematoma. OTHER: No other significant finding. IMPRESSION: No acute findings. White matter disease. EVIDENCE OF ACUTE STROKE: NO. COMMENT: Quality ID # 436: Final reports with documentation of one or more dose reduction techniques (e.g., Automated exposure control, adjustment of the mA and/or kV according to patient size, use of iterative reconstruction technique) TECHNICAL DOCUMENTATION: JOB ID: [id number] [employer]- All Rights Reserved Reading location - IP/workstation name: [email or web address]
--- NOTE | 2017-11-04 17:30 | RADIOLOGY REPORT (SQ) ---
EXAM DESCRIPTION: HAND RIGHT 3 VIEWS COMPLETED DATE/TIME: 11/04/2017 5:13 pm REASON FOR STUDY: pain s/p fall COMPARISON: None. EXAM PARAMETERS: NUMBER OF VIEWS: Three views. TECHNIQUE: AP, lateral and oblique radiographic images acquired of the right hand. LIMITATIONS: None. FINDINGS: MINERALIZATION: Normal. BONES: No acute fracture or dislocation. No worrisome bone lesions. JOINTS: No effusions. SOFT TISSUES: No soft tissue swelling. No foreign body. OTHER: No other significant finding. IMPRESSION: NEGATIVE STUDY OF THE RIGHT HAND. NO RADIOGRAPHIC EVIDENCE OF ACUTE INJURY. TECHNICAL DOCUMENTATION: JOB ID: [id number] [employer]- All Rights Reserved Reading location - IP/workstation name: [email or web address]
--- NOTE | 2017-11-04 17:31 | RADIOLOGY REPORT (SQ) ---
EXAM DESCRIPTION: RIBS RIGHT W/PA CHEST COMPLETED DATE/TIME: 11/04/2017 5:13 pm REASON FOR STUDY: pain s/p fall COMPARISON: None. TECHNIQUE: Frontal view of the chest and additional views of the right ribs acquired. NUMBER OF VIEWS: Three views LIMITATIONS: None. FINDINGS: FRONTAL CXR: No pneumothorax. No pleural effusion. Cardiomegaly. RIBS: No displaced rib fractures. No lytic or blastic bony lesions. OTHER: No other significant finding. IMPRESSION: Normal ribs. Cardiomegaly without nathen CHF. COMMENT: SITE OF TRAUMA/COMPLAINT MARKED/STAMP COMPLETED: No TECHNICAL DOCUMENTATION: JOB ID: [id number] [employer]- All Rights Reserved Reading location - IP/workstation name: [email or web address]
--- NOTE | 2017-11-04 17:32 | RADIOLOGY REPORT (SQ) ---
EXAM DESCRIPTION: CT CERVICAL SPINE WITHOUT COMPLETED DATE/TIME: 11/04/2017 5:14 pm REASON FOR STUDY: pain s/p fall/injury COMPARISON: Cervical spine CT 01/26/2015 TECHNIQUE: Axial images acquired through the cervical spine without intravenous contrast. Images re viewed with lung, soft tissue and bone windows. Reconstructed coronal and sagittal MPR images review ed. Images stored on PACS. All CT scanners at this facility use dose modulation, iterative reconstruction, and/or weight based d osing when appropriate to reduce radiation dose to as low as reasonably achievable (ALARA). [facility]: Dose Right [facility]: CareDose [facility]: Dose Right [facility]: Teradose 4D [facility]: [employer] RADIATION DOSE: CT Rad equipment meets quality standard of care and radiation dose reduction techniq ues were employed. CTDIvol: 22.9 mGy. DLP: 501 mGy-cm. mGy. LIMITATIONS: None. FINDINGS: ALIGNMENT: Normal MINERALIZATION: Normal. VERTEBRAL BODIES: No fractures or dislocation. DISCS: Multilevel disc space loss of height. Multilevel facet and uncovertebral arthropathy. No sig nificant central or foraminal stenosis at the craniocervical junction, C1-2, for C2-3. At C3-4, minimal posterior disc bulge and bony spurring is present without central stenosis. No righ t foraminal narrowing. Moderate to marked left foraminal narrowing from facet and uncovertebral hype rtrophy. At C4-5, no significant posterior disc bulge or bony spurring. There is high-grade right and mild le ft foraminal narrowing from facet and uncovertebral hypertrophy. Disc space loss of height is present at C5-6 with minimal posterior disc bulging. No central stenosi s. High-grade bilateral foraminal narrowing from facet and uncovertebral hypertrophy. At C6-7, mild posterior disc bulge and bony spurring is present without central stenosis. High-grade bilateral foraminal narrowing is present. C7-T1 is unremarkable FACETS, LATERAL MASSES, POSTERIOR ELEMENTS: No fractures. No dislocation. No acute findings. HARDWARE: None in the spine. VISUALIZED RIBS: No fractures. LUNG APICES AND SOFT TISSUES: Post left lobe thyroidectomy. 1 cm cyst right lobe thyroid. There is diffuse adenopathy as follows: Left supraclavicular lymph node 1.9 x 1.8 cm. Right paratra cheal lymph node in the upper mediastinum 1.4 x 1 cm Pretracheal 2.5 x 2.1 cm lymph node Pretracheal 2.3 x 1.5 cm lymph node AP window 2.7 x 1.5 cm lymph node. OTHER: No other significant finding. IMPRESSION: No acute fracture or malalignment. Adenopathy in the left supraclavicular region and upper mediastinum TECHNICAL DOCUMENTATION: JOB ID: [id number] Quality ID # [id number]: Final reports with documentation of one or more dose reduction techniques (e.g., Au tomated exposure control, adjustment of the mA and/or kV according to patient size, use of iterative reconstruction technique) 2010 [employer]- All Rights Reserved Reading location - IP/workstation name: [email or web address]
--- NOTE | 2017-11-04 17:33 | RADIOLOGY REPORT (SQ) ---
EXAM DESCRIPTION: L SPINE WHOLE COMPLETED DATE/TIME: 11/04/2017 5:13 pm REASON FOR STUDY: pain s/p fall/injury COMPARISON: None. NUMBER OF VIEWS: Five views including obliques. TECHNIQUE: AP, lateral, oblique, and sacral radiographic images acquired of the lumbar spine. LIMITATIONS: None. FINDINGS: MINERALIZATION: Normal. SEGMENTATION: Normal. No transitional anatomy. ALIGNMENT: Mild levoscoliosis. VERTEBRAE: Maintained height. No fracture or worrisome bone lesion. DISCS: Preserved height. No significant osteophytes or end plate irregularity. POSTERIOR ELEMENTS: Hypertrophic facet changes are present throughout the lumbar spine. HARDWARE: None in the spine. PARASPINAL SOFT TISSUES: Normal. PELVIS: Intact as visualized. No fractures or worrisome bone lesions. SI joints intact. OTHER: No other significant finding. IMPRESSION: Mild scoliosis. Extensive facet arthropathy. TECHNICAL DOCUMENTATION: JOB ID: [id number] [employer]- All Rights Reserved Reading location - IP/workstation name: [email or web address]
[2017-11-04 18:00] VITALS: BP 146/82
== END 2017-11-04 18:00 | disposition home or self-care (01) ==
LOC: ER 15:52
DX: S09.90XA Unspecified injury of head, initial encounter (principal); R51 Headache; M54.2 Cervicalgia; M54.5 Low back pain; R07.81 Pleurodynia; M79.641 Pain in right hand; W10.9XXA Fall (on) (from) unspecified stairs and steps, initial encounter; E78.00 Pure hypercholesterolemia, unspecified; I25.10 Atherosclerotic heart disease of native coronary artery without angina pectoris; I10 Essential (primary) hypertension; E11.9 Type 2 diabetes mellitus without complications; I25.2 Old myocardial infarction; Z90.49 Acquired absence of other specified parts of digestive tract; Z90.710 Acquired absence of both cervix and uterus; Z79.4 Long term (current) use of insulin; Z88.0 Allergy status to penicillin; Z88.2 Allergy status to sulfonamides; Z91.040 Latex allergy status
CPT/HCPCS: 99284; 73130; 72110; 71101; 70450; 72125; L0120

== ENCOUNTER → 2017-11-21 | Outpatient (CLI) | payer MEDICARE ==
--- NOTE | 2017-11-22 09:35 | RADIOLOGY REPORT (SQ) ---
"EXAM DESCRIPTION: PET CT SKULL/THIGH COMPLETED DATE/TIME: 11/21/2017 8:25 pm REASON FOR STUDY: ENLARGED LYMPH NODES R59.9 ENLARGED LYMPH NODES, UNSPECIFIED COMPARISON: CT abdomen pelvis 03/09/2017 CT cervical spine 11/04/2017 RADIONUCLIDE AND DOSE: 13.8 mCi F18 FDG The route of agent administration: Intravenous FASTING BLOOD SUGAR: 98 mg/dl CONTRAST TYPE AND DOSE: No CT contrast given. TECHNIQUE: Blood glucose level was verified. Above dose of FDG was injected intravenously. 2-D seg mented attenuation correction images were obtained from the base of the skull to the midthighs. Nonc ontrast CT images were obtained for attenuation correction and fusion with emission images. CT image s were performed without oral or intravenous contrast and are not sensitive for parenchymal lesions. A series of overlapping emission PET images were obtained. Images reviewed and manipulated at [facility] work station by the radiologist. Images stored on PACS. LIMITATIONS: None. FINDINGS: HEAD AND NECK: No areas of abnormal metabolic activity in the soft tissues of the head and neck. CHEST: There is hypermetabolic mediastinal adenopathy as follows: 1.6 x 1.2 cm node left paratracheal at the thoracic inlet image 57, SUV 4 2.5 x 2 cm right peritracheal lymph node axial image 67, SUV 6.2 1.9 x 1.3 cm aortopulmonary window lymph node axial image 75 SUV 5.5 4 x 2 cm sub- carinal lymph node image 80, SUV 7.3. ABDOMEN AND PELVIS: No areas of abnormal metabolic activity in the abdomen or pelvis. Expected physi ologic activity is present in the genitourinary system and bowel. PROXIMAL LOWER EXTREMITIES: No areas of abnormal metabolic activity in the soft tissues of the lower extremities. BONES: No abnormal metabolic activity in the visualized skeleton. ADDITIONAL CT FINDINGS: Left lobe thyroidectomy. Coronary artery disease with stents. Left-sided pa cemaker. Hysterectomy. Bilateral renal cortical cysts. OTHER: Liver background activity 1.9 SUV. Blood pool background activity 1.4 SUV IMPRESSION: Hypermetabolic mediastinal adenopathy without primary lung mass. TECHNICAL DOCUMENTATION: JOB ID: [id number] [employer] | [employer]- All Rights Reserved Reading location - IP/workstation name: [email or web address]"
== END ==
LOC: RAD 17:27
PROVIDERS: ATTEND Internal Medicine
DX: C38.3 Malignant neoplasm of mediastinum, part unspecified (principal); R59.9 Enlarged lymph nodes, unspecified
CPT/HCPCS: 78815; A9552

== ENCOUNTER 2017-11-25 14:37 | Emergency (ER) | payer MEDICARE ==
[2017-11-25 14:43] VITALS: BP 130/77
--- NOTE | 2017-11-25 14:57 | ER Document Report ---
ED Extremity Problem, Lower - General Chief Complaint: Toe Injury Stated Complaint: INJURY TO LEFT PINKY TOE Time Seen by Provider: 11/25/17 14:52 Mode of Arrival: Ambulatory Information source: Patient Notes: 77-year-old female presented ED for complaint of pain to the fifth toe on the left foot. She states she hit her foot about a week ago on the pain is been increasing to the foot and ankle since then. She states she came to the hospital today for a blood transfusion and came down to the ER to have a foot examined to get her toe checked out. Patient is alert oriented speaking in full sentences respirations are regular and unlabored. Patient was ambulatory but states that is painful to the left foot. TRAVEL OUTSIDE OF THE [place] IN LAST 30 DAYS: No - HPI Patient complains to provider of: Injury, Pain, Swelling Location: Foot, 5th Toe Occurred: Last week Where: Home Onset/Duration: Sudden, Worse Quality of pain: Achy, Sharp, Throbbing Severity: Severe Pain Level: 5 Context: Stubbed Recent injury: Yes Associated symptoms: Painful ambulation Exacerbated by: Hanging down, Movement, Walking Relieved by: Nothing - Related Data Allergies/Adverse Reactions: Penicillins Allergy (Mild, Verified 11/25/17 14:38) rash Sulfa (Sulfonamide Antibiotics) Allergy (Mild, Verified 11/25/17 14:38) rash latex Allergy (Mild, Uncoded 11/25/17 14:38) blistered skin,ICHING Past Medical History - General Information source: Patient - Social History Smoking Status: Never Smoker Lives with: Family Family History: Reviewed & Not Pertinent Patient has suicidal ideation: No Patient has homicidal ideation: No - Past Medical History Cardiac Medical History: Reports: Hx Coronary Artery Disease, Hx Heart Attack, Hx Hypercholesterolemia, Hx Hypertension Pulmonary Medical History: Reports: None Neurological Medical History: Reports: Hx Migraine Endocrine Medical History: Reports: Hx Diabetes Mellitus Type 2 Renal/ Medical History: Reports: None Malignancy Medical History: Reports: None GI Medical History: Reports: Hx Colonoscopy, Hx Endoscopy Musculoskeltal Medical History: Reports Hx Arthritis Skin Medical History: Reports None Psychiatric Medical History: Reports: None Traumatic Medical History: Reports: None Infectious Medical History: Reports: None Past Surgical History: Reports: Hx Cardiac Catheterization - defibrillator, stentsx3, Hx Cholecystectomy, Hx Coronary Stent, Hx Hysterectomy, Hx Internal Defibrillator, Hx Pacemaker - Defibrillator, Hx Thyroid Surgery - partial - Immunizations Immunizations up to date: Yes Hx Diphtheria, Pertussis, Tetanus Vaccination: No Review of Systems - Review of Systems Constitutional: No symptoms reported EENT: No symptoms reported Cardiovascular: No symptoms reported Respiratory: No symptoms reported Gastrointestinal: No symptoms reported Genitourinary: No symptoms reported Female Genitourinary: No symptoms reported Musculoskeletal: Other - Fifth toe and foot left pain for a week Skin: No symptoms reported Hematologic/Lymphatic: No symptoms reported Neurological/Psychological: No symptoms reported -: Yes All other systems reviewed and negative Physical Exam - Vital signs Vitals: Temp Pulse Resp BP Pulse Ox 98 F 88 18 130/77 H 100 11/25/17 14:42 11/25/17 14:42 11/25/17 14:42 11/25/17 14:42 11/25/17 14:42 Interpretation: Normal - General General appearance: Appears well, Alert - HEENT Head: Normocephalic, Atraumatic Eyes: Normal Pupils: PERRL - Respiratory Respiratory status: No respiratory distress Chest status: Nontender Breath sounds: Normal Chest palpation: Normal - Cardiovascular Rhythm: Regular Heart sounds: Normal auscultation Murmur: No - Abdominal Inspection: Normal Distension: No distension Bowel sounds: Normal Tenderness: Nontender Organomegaly: No organomegaly - Back Back: Normal, Nontender - Extremities General upper extremity: Normal inspection, Nontender, Normal color, Normal ROM , Normal temperature General lower extremity: Normal color, Normal temperature. No: Aniyah's sign Foot: Tender, Edema, Metatarsal compress. pain, No evidence of FB. No: Unable to bear weight - Ambulation - Neurological Neuro grossly intact: Yes Cognition: Normal Orientation: AAOx4 [place] Coma Scale Eye Opening: Spontaneous [place] Coma Scale Verbal: Oriented [place] Coma Scale Motor: Obeys Commands [place] Coma Scale Total: 15 Speech: Normal Motor strength normal: LUE, RUE, LLE, RLE Sensory: Normal - Psychological Associated symptoms: Normal affect, Normal mood - Skin Skin Temperature: Warm Skin Moisture: Dry Skin Color: Normal Course - Re-evaluation Re-evalutation: 11/25/17 23:01 X-ray discussed with patient and written report of x-ray given to patient. Patient was treated marquis taping the fifth toe to the fourth toe. Patient and daughter were both given instructions on how to read tape the toe. Patient was instructed to follow-up with her primary doctor and orthopedics. She given instruction to elevate and ice the foot. - Vital Signs Vital signs: Temp Pulse Resp BP Pulse Ox 98 F 88 18 130/77 H 100 11/25/17 14:42 11/25/17 14:42 11/25/17 14:42 11/25/17 14:42 11/25/17 14:42 - Diagnostic Test Radiology reviewed: Image reviewed, Reports reviewed Discharge - Discharge Clinical Impression: Fracture of fifth toe, left, closed Qualifiers: Encounter type: initial encounter Qualified Code(s): S92.502A - Displaced unspecified fracture of left lesser toe(s), initial encounter for closed fracture Condition: Stable Disposition: HOME, SELF-CARE Additional Instructions: Fractured Toe You have fractured your toe. Although this fracture doesn't need a cast or splint, emergency evaluation was needed to assess the straightness of the bones and joints. Reduction ("setting") is necessary for toe fractures which are crooked or twisted. A toe fracture will heal in about three weeks. Usually, the fractured toe is taped to the next toe. The second toe acts as a moving splint to protect the broken one. Ice and elevation help during the first 48 hours. You may need crutches at first if walking is painful. When you begin walking, be careful NOT to do things that hurt. If weight bearing is not comfortable within a few days, you may require a special shoe, walking boot, or cast. Call the doctor or return at once if severe swelling, severe pain, or numbness develop in the toe, or if you suspect you may have re-injured it. Marquis Taping Your toes have been taped together -- called "marquis taping." The good toe can act as a moving splint to protect the injured toe. You will probably need to keep the tape in place (replacing it when needed) for about three weeks. A firm shoe over the injured toes is usually a good idea. As a general rule, you shouldn't do anything which causes pain to your taped toes. Taping isn't absolute protection, so match your activity to your degree of healing. If you ever suspect that you have re-injured the toe, return for re-examination. Keep the tape dry. Constant wetness harms the skin. Some cotton between the toes may help if perspiration is a problem. Replace the tape as needed when it becomes loose, weak, or dirty. Replace the tape daily if you are sweating. If the toes swell, discolor, or become numb, loosen the tape. Return here if there are problems. Acetaminophen Acetaminophen may be taken for pain relief or fever control. It's much safer than aspirin, offering a wider range of "safe" dosages. It is safe during . Some brand names are Tylenol, Panadol, Datril, Anacin 3, Tempra, and Liquiprin. Acetaminophen can be repeated every four hours. The following are maximum recommended dosages: WEIGHT Dose Drops Elixir Chewable( 80mg) (LBS.) drprs=droppers tsp=teaspoon 6 40 mg .4 ml (1/2) 6-11 80 mg .8 ml (full) 1/2 tsp 1 tab 12-16 120 mg 1 1/2 drprs 3/4 tsp 1 1/2 tabs 17-23 160 mg 2 drprs 1 tsp 2 tabs 24-30 240 mg 3 drprs 1 1/2 tsp 3 tabs 30-35 320 mg 2 tsp 4 tabs 36-41 360 mg 2 1/4 tsp 4 1 /2 tabs 42-47 400 mg 2 1/2 tsp 5 tabs 48-53 480 mg 3 tsp 6 tabs 54-59 520 mg 3 1/4 tsp 6 1 /2 tabs 60-64 560 mg 3 1/2 tsp 7 tabs 65-70 600 mg 3 3/4 tsp 7 1 /2 tabs 71-76 640 mg 4 tsp 8 tabs 77-82 720 mg 4 1/2 tsp 9 tabs 83-88 800 mg 5 tsp 10 tabs >89 pounds or adults 650 mg to 900 mg Acetaminophen can be repeated every four hours. Maximum daily dose not to exceed 4000 mg. These maximum recommended dosages are slightly higher than the dosages written on the product container, but these dosages are very safe and well below the toxic dosage for acetaminophen. FOLLOW-UP CARE: If you have been referred to a physician for follow-up care, call the physician s office for an appointment as you were instructed or within the next two days. If you experience worsening or a significant change in your symptoms, notify the physician immediately or return to the Emergency Department at any time for re-evaluation. Forms: Elevated Blood Pressure Referrals: BIANCA KING MD [ACTIVE STAFF] - Follow up as needed JUANA BARNEY DPM [ACTIVE STAFF] - Follow up as needed
--- NOTE | 2017-11-25 15:31 | RADIOLOGY REPORT (SQ) ---
EXAM DESCRIPTION: FOOT LEFT COMPLETE COMPLETED DATE/TIME: 11/25/2017 3:20 pm REASON FOR STUDY: hit 5th toe last week increased pain in foot and t COMPARISON: None. NUMBER OF VIEWS: Three views. TECHNIQUE: AP, lateral and oblique radiographic images acquired of the left foot. LIMITATIONS: None. FINDINGS: MINERALIZATION: Normal. BONES: Oblique slightly displaced fracture proximal portion of the proximal phalanx of the 5th digit. No extension into the adjacent articulating joint. Old postop changes proximal phalanx of the grea t toe. JOINTS: No effusions. SOFT TISSUES: Soft tissue swelling 5th toe adjacent to the fracture. OTHER: No other significant finding. IMPRESSION: Oblique slightly displaced fracture through the shaft of the proximal phalanx of the 5th digit. Associated soft tissue swelling. TECHNICAL DOCUMENTATION: JOB ID: [id number] [employer]- All Rights Reserved Reading location - IP/workstation name: [email or web address]
== END 2017-11-25 16:16 | disposition home or self-care (01) ==
LOC: ER 14:37
DX: S92.502A Displaced unspecified fracture of left lesser toe(s), initial encounter for closed fracture (principal); M25.572 Pain in left ankle and joints of left foot; M79.672 Pain in left foot; M79.89 Other specified soft tissue disorders; X58.XXXA Exposure to other specified factors, initial encounter; I25.10 Atherosclerotic heart disease of native coronary artery without angina pectoris; I10 Essential (primary) hypertension; E11.9 Type 2 diabetes mellitus without complications
CPT/HCPCS: 99283

== ENCOUNTER 2017-12-20 08:12 | Day surgery (SDC) | payer MEDICARE ==
[2017-12-20 08:51] LABS: HEMATOCRIT 30.4 % (36.0-47.0); MEAN CORPUSCULAR HEMOGLOBIN 29.3 pg (27.0-33.4); MEAN CORPUSCULAR VOLUME 89 fl (80-97); PLATELET COUNT 249 10^3/uL (150-450); RED BLOOD COUNT 3.42 10^6/uL (3.72-5.28); RED CELL DISTRIBUTION WIDTH 16.5 % (11.5-14.0); WHITE BLOOD COUNT 4.9 10^3/uL (4.0-10.5)
[2017-12-20 09:07] LABS: INTERNATIONAL RATION (INR) 1.12; PARTIAL THROMBOPLASTIN TIME 32.6 SEC (23.5-35.8)
[2017-12-20 09:12] LABS: BLOOD UREA NITROGEN 14 mg/dL (7-20); CREATINE KINASE 30 U/L (30-135); GLUCOSE 96 mg/dL (75-110)
[2017-12-20] MEDS ORDERED: MIDAZOLAM 2 MG/2 ML INJ ONE (10:27)
[2017-12-20] MEDS ORDERED: FENTANYL CITRATE INJ/PF 100 MCG/2 ML AMPUL ONE (10:27)
[2017-12-20] MEDS ORDERED: LIDOCAINE 1% INJ-PF (10 MG/ML) 30 ML SDV ONE (10:28)
--- NOTE | 2017-12-20 12:23 | RADIOLOGY REPORT (SQ) ---
EXAM DESCRIPTION: CT BIOPSY BONE MARROW, NEEDLE; CT NEEDLE PLACEMENT COMPLETED DATE/TIME: 12/20/2017 11:43 am REASON FOR STUDY: ANEMIA; ANEMIA, BONE MARROW BIOPSY D64.9 ANEMIA, UNSPECIFIED R59.1 GENERALIZED E NLARGED LYMPH NODES Z79.899 OTHER [facility] (CURRENT) DRUG THERAPY COMPARISON: None. TECHNIQUE: CT guided biopsy of the right iliac crest bone marrow performed with conscious sedation. CT Fluoroscopy Time: 6.[address] scanners at this facility use dose modulation, iterative reconstruction, and/or weight based d osing when appropriate to reduce radiation dose to as low as reasonably achievable (ALARA). [facility]: Dose Right [facility]: CareDose [facility]: Dose Right [facility]: Teradose 4D [facility]: WOWIO RADIATION DOSE: CT Rad equipment meets quality standard of care and radiation dose reduction techniq ues were employed. CTDIvol: 4.0 - 17.4 mGy. DLP: 443 mGy-cm.mGy. FINDINGS: After obtaining informed consent and explaining the risks and benefits of conscious sedati on,the patient agreed to the procedure. Prior to the procedure, a time out was performed to verify th e patient's identity and planned procedure. IV conscious sedation was administered and physician direction by the registered nurse using 1 millig luz maria of Versed and 100 micrograms of fentanyl. Physiologic monitoring was provided before, during, an d after sedation. The total sedation time was 30 minutes. Documentation face to face time, the performing proceduralist, spent monitoring the patient: [address] scanning was performed to localize the percutaneous site for the biopsy approach. After sterile skin prep and local lidocaine for skin and deep tissue anesthesia, a coaxial biopsy nee dle was used to obtain a bone marrow aspirate, and a bone marrow core of tissue. The biopsy tissue wa s received by [facility] lab to be sent out for evaluation. There were no immediate complications. Pathology is pending at the time of dictation. IMPRESSION: CT GUIDED ASPIRATE AND CORE BIOPSY OF THE RIGHT POSTERIOR ILIAC CREST BONE MARROW PERFOR MED WITHOUT IMMEDIATE COMPLICATION. PATHOLOGY PENDING. IV CONSCIOUS SEDATION WITHOUT COMPLICATION. COMMENT: Quality ID 145: Final reports for procedures using fluoroscopy that document radiation exp osure indices, or exposure time and number of fluorographic images (if radiation exposure indices are not available) Patient medication list reviewed: Yes- Quality ID# [id number]:Eligible professional attests to documenting i n the medical record they obtained, updated, or reviewed the patient's current medications.. TECHNICAL DOCUMENTATION: JOB ID: [id number] Quality ID# 436: Final reports with documentation of one or more dose reduction techniques (e.g., Aut omated exposure control, adjustment of the mA and/or kV according to patient size, use of iterative r econstruction technique) 2010 [employer]- All Rights Reserved Reading location - IP/workstation name: [email or web address] [email or web address] BEDS AT THE [facility]-RR2
--- NOTE | 2017-12-20 12:23 | RADIOLOGY REPORT (SQ) ---
EXAM DESCRIPTION: CT BIOPSY BONE MARROW, NEEDLE; CT NEEDLE PLACEMENT COMPLETED DATE/TIME: 12/20/2017 11:43 am REASON FOR STUDY: ANEMIA; ANEMIA, BONE MARROW BIOPSY D64.9 ANEMIA, UNSPECIFIED R59.1 GENERALIZED E NLARGED LYMPH NODES Z79.899 [facility] (CURRENT) DRUG THERAPY COMPARISON: None. TECHNIQUE: CT guided biopsy of the right iliac crest bone marrow performed with conscious sedation. CT Fluoroscopy Time: 6.[address] scanners at this facility use dose modulation, iterative reconstruction, and/or weight based d osing when appropriate to reduce radiation dose to as low as reasonably achievable (ALARA). [facility]: Dose Right [facility]: CareDose [facility]: Dose Right [facility]: Teradose 4D [facility]: Confer RADIATION DOSE: CT Rad equipment meets quality standard of care and radiation dose reduction techniq ues were employed. CTDIvol: 4.0 - 17.4 mGy. DLP: 443 mGy-cm.mGy. FINDINGS: After obtaining informed consent and explaining the risks and benefits of conscious sedati on,the patient agreed to the procedure. Prior to the procedure, a time out was performed to verify th e patient's identity and planned procedure. IV conscious sedation was administered and physician direction by the registered nurse using 1 millig luz maria of Versed and 100 micrograms of fentanyl. Physiologic monitoring was provided before, during, an d after sedation. The total sedation time was 30 minutes. Documentation face to face time, the performing proceduralist, spent monitoring the patient: [address] scanning was performed to localize the percutaneous site for the biopsy approach. After sterile skin prep and local lidocaine for skin and deep tissue anesthesia, a coaxial biopsy nee dle was used to obtain a bone marrow aspirate, and a bone marrow core of tissue. The biopsy tissue wa s received by [facility] lab to be sent out for evaluation. There were no immediate complications. Pathology is pending at the time of dictation. IMPRESSION: CT GUIDED ASPIRATE AND CORE BIOPSY OF THE RIGHT POSTERIOR ILIAC CREST BONE MARROW PERFOR MED WITHOUT IMMEDIATE COMPLICATION. PATHOLOGY PENDING. IV CONSCIOUS SEDATION WITHOUT COMPLICATION. COMMENT: Quality ID 145: Final reports for procedures using fluoroscopy that document radiation exp osure indices, or exposure time and number of fluorographic images (if radiation exposure indices are not available) Patient medication list reviewed: Yes- Quality ID# 130:Eligible professional attests to documenting i n the medical record they obtained, updated, or reviewed the patient's current medications.. TECHNICAL DOCUMENTATION: JOB ID: [id number] Quality ID# 436: Final reports with documentation of one or more dose reduction techniques (e.g., Aut omated exposure control, adjustment of the mA and/or kV according to patient size, use of iterative r econstruction technique) 2010 [employer]- All Rights Reserved Reading location - IP/workstation name: [email or web address]
[2017-12-20 14:30] VITALS: BP 140/65
== END 2017-12-20 14:15 | disposition home or self-care (01) ==
LOC: RAD 08:12
PROVIDERS: ATTEND Internal Medicine Medical Oncology
DX: D64.9 Anemia, unspecified (principal); R59.1 Generalized enlarged lymph nodes; I49.9 Cardiac arrhythmia, unspecified; F41.9 Anxiety disorder, unspecified; M25.50 Pain in unspecified joint; I10 Essential (primary) hypertension; Z79.899 Other long term (current) drug therapy; Z79.84 Long term (current) use of oral hypoglycemic drugs; Z79.4 Long term (current) use of insulin; Z88.0 Allergy status to penicillin; Z88.2 Allergy status to sulfonamides; Z79.02 Long term (current) use of antithrombotics/antiplatelets; Z91.040 Latex allergy status
CPT/HCPCS: 36415; 84520; 82550; 82565; 82947; 85027; 85610; 85730; 38221; 77012; J2250; J3010; J3490

== ENCOUNTER 2018-02-21 09:40 | Inpatient (IN) | payer MEDICARE ==
[2018-02-21 10:04] LABS: ABSOLUTE EOSINOPHILS # (AUTO) 0.1 10^3/uL (0.0-0.6); ABSOLUTE LYMPHOCYTES (AUTO) 1.4 10^3/uL (0.5-4.7); ABSOLUTE MONOCYTES (AUTO) 0.5 10^3/uL (0.1-1.4); ABSOLUTE NEUT (AUTO) 4.8 10^3/uL (1.7-8.2); BASOPHILS % (AUTO) 0.6 % (0-2); EOSINOPHILS % (AUTO) 1.5 % (0-6); HEMATOCRIT 37.4 % (36.0-47.0); HEMOGLOBIN 13.2 g/dL (12.0-15.5); LYMPHOCYTES % (AUTO) 20.7 % (13-45); MEAN CORPUSCULAR HGB CONC 35.3 g/dL (32.0-36.0); MEAN CORPUSCULAR VOLUME 91 fl (80-97); MONOCYTES % (AUTO) 7.4 % (3-13); PLATELET COUNT 168 10^3/uL (150-450); RED BLOOD COUNT 4.12 10^6/uL (3.72-5.28); RED CELL DISTRIBUTION WIDTH 21.7 % (11.5-14.0); SEGMENTED NEUTROPHILS % (AUTO) 69.8 % (42-78); TOTAL CELLS COUNTED % (AUTO) 100 %; WHITE BLOOD COUNT 6.9 10^3/uL (4.0-10.5)
[2018-02-21 10:22] LABS: ALANINE AMINOTRANSFERASE 10 U/L (9-52); ALBUMIN 4.3 g/dL (3.5-5.0); ALKALINE PHOSPHATASE 68 U/L (38-126); ANION GAP 10 (5-19); ASPARTATE AMINO TRANSFERASE 31 U/L (14-36); BILIRUBIN,DIRECT 0.4 mg/dL (0.0-0.4); BILIRUBIN,TOTAL 0.5 mg/dL (0.2-1.3); BLOOD UREA NITROGEN 9 mg/dL (7-20); CALCIUM 9.1 mg/dL (8.4-10.2); CARBON DIOXIDE 30 mmol/L (22-30); CHLORIDE 86 mmol/L (98-107); CREATINE KINASE 60 U/L (30-135); GLUCOSE 121 mg/dL (75-110); POTASSIUM 3.5 mmol/L (3.6-5.0); SODIUM 126.4 mmol/L (137-145); TOTAL PROTEIN 8.1 g/dL (6.3-8.2)
--- NOTE | 2018-02-21 10:25 | RADIOLOGY REPORT (SQ) ---
EXAM DESCRIPTION: CHEST SINGLE VIEW COMPLETED DATE/TIME: 02/21/2018 9:58 am REASON FOR STUDY: bed 17 db COMPARISON: 08/08/2017 EXAM PARAMETERS: NUMBER OF VIEWS: One view. TECHNIQUE: Single frontal radiographic view of the chest acquired. RADIATION DOSE: NA LIMITATIONS: None. FINDINGS: LUNGS AND PLEURA: Bilateral airspace disease in the mid and lower lung zones bilaterally, may be on the basis of edema or infiltrates. Small bilateral pleural effusions.. MEDIASTINUM AND HILAR STRUCTURES: No masses. Contour normal. HEART AND VASCULAR STRUCTURES: Cardiomegaly, stable finding. Mild pulmonary vascular congestion. C ardiac stents are again identified. BONES: No acute findings. HARDWARE: Cardiac pacemaker, unchanged finding. OTHER: Multiple surgical clips base of the neck on the left. IMPRESSION: 1. Bilateral airspace disease in the mid and lower lung zones, may be on the basis of e debbie or infiltrates. Small bilateral pleural effusions. 2. Cardiomegaly and mild pulmonary vascular congestion. TECHNICAL DOCUMENTATION: JOB ID: [id number] [employer]- All Rights Reserved Reading location - IP/workstation name: [email or web address]
[2018-02-21 10:35] LABS: TROPONIN I < 0.012 ng/mL
[2018-02-21] MEDS ORDERED: IPRATROPIUM/ALBUTEROL 0.5-2.5 MG/3 ML AMPUL NEB ONE (10:35)
--- NOTE | 2018-02-21 10:35 | ER Document Report ---
ED Respiratory Problem - General Mode of Arrival: Ambulatory Information source: Patient TRAVEL OUTSIDE OF THE [place] IN LAST 30 DAYS: No <IRMA BETHEA - Last Filed: 02/21/18 13:14> <VOLODYMYR DE JESUS - Last Filed: 02/21/18 13:40> - General Chief Complaint: Breathing Difficulty Stated Complaint: DIFFICULTY BREATHING Time Seen by Provider: 02/21/18 10:21 Notes: 77-year-old female who presents to the emergency department today with complaints of shortness of breath. Patient states her shortness of breath began this morning at around 0730. Patient states she was sitting on side of the bed when the shortness of breath began. Patient mentions that she has a biopsy scheduled next week with a laborer cement gun placing who was also supposed to rule her out for PE. Patient is a poor historian so history is limited. (IRMA BETHEA) - Related Data Allergies/Adverse Reactions: Penicillins Allergy (Mild, Verified 02/21/18 09:56) rash Sulfa (Sulfonamide Antibiotics) Allergy (Mild, Verified 02/21/18 09:56) rash latex Allergy (Mild, Uncoded 02/21/18 09:56) blistered skin,ICHING Past Medical History - General Information source: Patient - Social History Smoking Status: Former Smoker Cigarette use (# per day): No Frequency of alcohol use: None Drug Abuse: None Lives with: Family Family History: Reviewed & Not Pertinent Patient has suicidal ideation: No Patient has homicidal ideation: No - Past Medical History Cardiac Medical History: Reports: Hx Congestive Heart Failure, Hx Coronary Artery Disease, Hx Heart Attack, Hx Hypercholesterolemia, Hx Hypertension Neurological Medical History: Reports: Hx Migraine Endocrine Medical History: Reports: Hx Diabetes Mellitus Type 2 GI Medical History: Reports: Hx Gastroesophageal Reflux Disease, Hx Colonoscopy , Hx Endoscopy Musculoskeletal Medical History: Reports Hx Arthritis Past Surgical History: Reports: Hx Cardiac Catheterization - defibrillator, stentsx3, Hx Cholecystectomy, Hx Coronary Stent, Hx Hysterectomy, Hx Internal Defibrillator, Hx Pacemaker - Defibrillator, Hx Thyroid Surgery - partial - Immunizations Immunizations up to date: Yes Hx Diphtheria, Pertussis, Tetanus Vaccination: No <IRMA BETHEA - Last Filed: 02/21/18 13:14> Review of Systems - Review of Systems Constitutional: No symptoms reported EENT: No symptoms reported Cardiovascular: No symptoms reported Respiratory: See HPI, Short of breath, Wheezing Gastrointestinal: No symptoms reported Genitourinary: No symptoms reported Female Genitourinary: No symptoms reported Musculoskeletal: No symptoms reported Skin: No symptoms reported Hematologic/Lymphatic: No symptoms reported Neurological/Psychological: No symptoms reported -: Yes All other systems reviewed and negative <IRMA BETHEA - Last Filed: 02/21/18 13:14> Physical Exam <IRMA BETHEA - Last Filed: 02/21/18 13:14> <VOLODYMYR DE JESUS - Last Filed: 02/21/18 13:40> - Vital signs Vitals: Temp Resp Pulse Ox 98.2 F 25 H 91 L 02/21/18 09:45 02/21/18 09:45 02/21/18 09:45 - Notes Notes: Physical Exam: General: Alert, appears age appropriate. HEENT: Normocephalic. Atraumatic. PERRL. Extraocular movements intact. Oropharynx clear. Neck: Supple. Non-tender. Respiratory: No respiratory distress. Tight high-pitched inspiratory and expiratory wheezing on the right. Cardiovascular: Regular rate and rhythm. Abdominal: Obese. Non-tender. No distension. Normal Bowel Sounds. Back: Non-tender. No deformity or step off. Extremities: Moves all four extremities. Upper extremities: Normal inspection. Normal ROM. Lower extremities: Normal inspection. No edema. Normal ROM. Neurological: Normal cognition. AAOx4. Normal speech. Psychological: Normal affect. Normal Mood. Skin: Warm. Dry. Normal color. (IRMA BETHEA) Course - Laboratory Result Diagrams: 02/21/18 09:50 02/21/18 09:50 <IRMA BETHEA - Last Filed: 02/21/18 13:14> - Laboratory Result Diagrams: 02/21/18 09:50 02/21/18 09:50 - Diagnostic Test Radiology reviewed: Image reviewed, Reports reviewed - Chest x-ray shows cardiomegaly with mild pulmonary vascular congestion. There are bilateral airspace disease noted in the mid and lower lung zones which may be edema or infiltrate. - EKG Interpretation by Ne EKG shows normal: Sinus rhythm, [place], Intervals, ST-T Waves. abnormal: QRS Complexes - Old inferior infarct Rate: Normal - 77 Rhythm: NSR, PVC's P Waves: LAE When compared to previous EKG there are: No significant change - Consults Dr. Herrera Consulted provider: will see as inpatient <VOLODYMYR DE JESUS - Last Filed: 02/21/18 13:40> - Re-evaluation Re-evalutation: 02/21/18 12:11 After the DuoNeb treatment, wheezes in the right lung seem to have almost gone away. Patient states she cannot tell any real difference in how her breathing is after the breathing treatment, but states she did notice a big difference after she had oxygen put on her when she first got here. (VOLODYMYR DE JESUS) - Vital Signs Vital signs: Temp Pulse Resp BP Pulse Ox 98.2 F 21 H 167/92 H 97 02/21/18 09:45 02/21/18 13:01 02/21/18 13:01 02/21/18 13:01 - Laboratory Laboratory results interpreted by me: 02/21/18 02/21/18 02/21/18 09:50 09:50 09:50 RDW 21.7 H D-Dimer Sodium 126.4 L Potassium 3.5 L Chloride 86 L Glucose 121 H NT-Pro-B Natriuret Pep 1340 H Urine Protein Urine Ascorbic Acid 02/21/18 02/21/18 09:50 12:41 RDW D-Dimer 0.73 H Sodium Potassium Chloride Glucose NT-Pro-B Natriuret Pep Urine Protein 30 H Urine Ascorbic Acid 20 H Discharge <IRMA BETHEA - Last Filed: 02/21/18 13:14> - Discharge Admitting Provider: Javier Unit Admitted: Telemetry <VOLODYMYR DE JESUS - Last Filed: 02/21/18 13:40> - Discharge Clinical Impression: Pulmonary vascular congestion, Hyponatremia Dyspnea Qualifiers: Dyspnea type: shortness of breath Qualified Code(s): R06.02 - Shortness of breath Condition: Stable Disposition: ADMITTED INPATIENT Referrals: BIANCA KING MD [Primary Care Provider] - Follow up as needed Scribe Attestation: 02/21/18 11:35 I personally performed the services described in the documentation, reviewed and edited the documentation which was dictated to the scribe in my presence, and it accurately records my words and actions. (VOLODYMYR DE JESUS) Scribe Documentation - Scribe Written by Scribe:: Ryan Munoz, 02/21/2018 1322 acting as scribe for :: Wilbur <IRMA BETHEA - Last Filed: 02/21/18 13:14>
[2018-02-21 13:11] LABS: AMORPHOUS SEDIMENT,URINE TRACE /HPF; APPEARANCE,URINE CLOUDY; BILIRUBIN,URINE NEGATIVE (NEGATIVE); COLOR,URINE YELLOW; GLUCOSE, URINE NEGATIVE (NEGATIVE); KETONES,URINE NEGATIVE (NEGATIVE); LEUKOCYTE ESTERASE,URINE NEGATIVE (NEGATIVE); NITRITE,URINE NEGATIVE (NEGATIVE); PROTEIN,URINE 30 mg/dL (NEGATIVE); URINE SPECIFIC GRAVITY 1.013; UROBILINOGEN,URINE NEGATIVE mg/dL (<2.0)
[2018-02-21] MEDS ORDERED: FUROSEMIDE INJ/PF 100 MG/10 ML SDV IV ONE (13:40)
[2018-02-21] MEDS ORDERED: HYDROCODONE/ACETAMINOPHEN 5-325 MG TABLET PO PRN (13:42)
[2018-02-21] MEDS ORDERED: (PENDING PHARMACY ID) (Omeprazole [Omeprazole] 1 TAB) PO SCH (13:45)
[2018-02-21] MEDS ORDERED: CYANOCOBALAMIN (VITAMIN B-12) INJ 1000 MCG/1 ML VIAL IM SCH (13:45)
[2018-02-21] MEDS ORDERED: FUROSEMIDE 40 MG TABLET PO SCH (13:45)
[2018-02-21] MEDS ORDERED: OMEGA PO SCH (13:45)
[2018-02-21] MEDS ORDERED: ASPIRIN 325 MG TABLET PO SCH (13:45)
[2018-02-21] MEDS ORDERED: FISH OIL PO SCH (13:45)
[2018-02-21] MEDS ORDERED: IMIPRAMINE HCL 25 MG TABLET PO SCH ×2 (13:45→15:30)
[2018-02-21] MEDS ORDERED: AMLODIPINE BESYLATE 5 MG TABLET PO SCH (13:45)
[2018-02-21] MEDS ORDERED: FATTY ACIDS PO SCH (13:45)
[2018-02-21 14:47] LABS: LIPASE 167.3 U/L (23-300); PHOSPHORUS 3.4 mg/dL (2.5-4.5)
[2018-02-21 14:52] LABS: INTERNATIONAL RATION (INR) 1.07; PROTHROMBIN TIME 14.5 SEC (11.4-15.4)
[2018-02-21 14:53] LABS: PARTIAL THROMBOPLASTIN TIME 33.7 SEC (23.5-35.8)
[2018-02-21 15:04] LABS: FREE T4 (FREE THYROXINE) 0.91 ng/dL (0.78-2.19)
[2018-02-21 15:09] LABS: OSMOLALITY,URINE 420 mOsm/kg (300-900)
[2018-02-21 15:14] LABS: URINE AMPHETAMINES SCREEN NEGATIVE; URINE BARBITURATES SCREEN NEGATIVE; URINE BENZODIAZEPINES SCREEN NEGATIVE; URINE COCAINE SCREEN NEGATIVE; URINE MARIJUANA (THC) SCREEN NEGATIVE; URINE METHADONE SCREEN NEGATIVE; URINE PHENCYCLIDINE SCREEN NEGATIVE
[2018-02-21 15:20] LABS: THYROID STIMULATING HORMONE 1.14 uIU/mL (0.47-4.68)
[2018-02-21 15:24] LABS: URINE SODIUM 104 mmol/L (30-90)
[2018-02-21] MEDS: HEPARIN SOD (PORCINE) 5,000 UNIT/ML 1 ML SYRINGE SUBCUT SCH ×2 (15:25→21:49)
--- NOTE | 2018-02-21 16:01 | EKG REPORT ---
SEVERITY:- ABNORMAL ECG - SINUS RHYTHM PAIRED VENTRICULAR PREMATURE COMPLEXES PROBABLE LEFT ATRIAL ABNORMALITY PROBABLE INFERIOR INFARCT, AGE INDETERMINATE : Confirmed by: Eh Erickson 21-Feb-2018 16:00:09
[2018-02-21] MEDS: OMEGA-3 ACID ETHYL ESTERS 1 GM CAPSULE PO SCH (16:55)
[2018-02-21] MEDS ORDERED: DEXTROSE 50%-WATER SYRINGE 25 GM/50 ML DOSE IV PRN (17:49)
[2018-02-21] MEDS ORDERED: DEXTROSE 40% GEL 15 GM TUBE PO PRN (17:49)
[2018-02-21] MEDS ORDERED: GLUCAGON,HUMAN RECOMB 1 MG INJ IM PRN (17:49)
[2018-02-21] MEDS ORDERED: DEXTROSE 40% GEL 15 GM TUBE X 2 PO PRN (17:49)
[2018-02-21] MEDS ORDERED: DEXTROSE 50%-WATER SYRINGE 12.5 GM/25 ML DOSE IV PRN (17:49)
[2018-02-21] MEDS ORDERED: INSULIN LISPRO 100 UNIT/ML 3 ML VIAL SUBCUT PRN (17:49)
[2018-02-21] MEDS ORDERED: (PENDING PHARMACY ID) (Pravastatin Sodium [Pravachol] 40 MG) PO SCH (18:00)
[2018-02-21] MEDS ORDERED: POTASSIUM CHLORIDE 10 MEQ CAPSULE.ER PO ONE (18:15)
--- NOTE | 2018-02-21 19:49 | XCELERA REPORT ---
[address] [address] Transthoracic Echocardiogram Report Name: GERALDO DINH Age: 77 yrs Gender: Female : 1940 Patient Status: Inpatient Patient Location: [place] [address]^A Study Date: 02/21/2018 02:20 PM Height: 66 in Weight: 174 lb BSA: 1.9 m2 BP: 6/ mmHg Procedure: A two-dimensional transthoracic echocardiogram with color flow and Doppler was performed. Study Quality: Fair. Reason For Study: CHF History: CHF. Ordering Physician: SANDRA DENNISON Performed By: José Luis Perera Interpretation Summary The left ventricle is moderately dilated. There is normal left ventricular wall thickness. LV EF is 25% There is severe global hypokinesis of the left ventricle. There is no thrombus. The right ventricle is normal in size and function. The right atrium is normal. The left atrial size is normal. The interatrial septum is intact with no evidence for an atrial septal defect. There is no evidence of mitral valve prolapse. There is no vegetation seen on the mitral valve. There is no mitral valve stenosis. There is a mild to moderate amount of mitral regurgitation There is no aortic valvular vegetation. There is no aortic valve stenosis There is no LVOT obstruction. No aortic regurgitation is present. There is no tricuspid stenosis. There is a moderate to severe amount of tricuspid regurgitation There is moderate pulmonary hypertension by echo RVSP is 52 to 57 mm of Hg , with RA mean of 5 to 10. There is no pulmonic valvular stenosis. There is a mild amount of pulmonic regurgitation The inferior vena cava appeared normal and decreased > 50% with respiration (RAP 5-10 mmHg) There is no pericardial effusion. MMode/2D Measurements & Calculations RVDd: 2.4 cm LVIDd: 5.8 cm FS: 15.0 % Ao root diam: 3.0 cm IVSd: 1.1 cm LVIDs: 4.9 cm EDV(Teich): 163.5 ml Ao root area: 6.9 cm2 LVPWd: 0.97 cm ESV(Teich): 112.4 ml LA dimension: 3.7 cm EF(Teich): 31.2 % Doppler Measurements & Calculations MV E max leny: MV P1/2t max leny: Ao V2 max: LV V1 max P.3 cm/sec 124.3 cm/sec 116.2 cm/sec 2.5 mmHg MV A max leny: MV P1/2t: 60.1 msec Ao max PG: LV V1 max: 101.7 cm/sec MVA(P1/2t): 3.7 cm2 5.4 mmHg 78.8 cm/sec MV E/A: 1.3 MV dec slope: LV dP/dt: 1298 mmHg/s 605.6 cm/sec2 MV dec time: 0.18 sec PA V2 max: PI end-d leny: TR max leny: MV P1/2t-pr_phl: 68.6 cm/sec 112.9 cm/sec 339.3 cm/sec 60.1 msec PA max P.9 mmHg TR max P.1 mmHg Left Ventricle The left ventricle is moderately dilated. There is normal left ventricular wall thickness. LV EF is 25%. Left ventricular systolic function is severely reduced. There is severe global hypokinesis of the left ventricle. There is no thrombus. Right Ventricle The right ventricle is normal in size and function. Atria The right atrium is normal. The left atrial size is normal. The interatrial septum is intact with no evidence for an atrial septal defect. Mitral Valve There is mild mitral annular calcification. There is no evidence of mitral valve prolapse. There is no vegetation seen on the mitral valve. There is no mitral valve stenosis. There is a mild to moderate amount of mitral regurgitation. Aortic Valve There is no aortic valvular vegetation. There is no aortic valve stenosis. There is no LVOT obstruction. No aortic regurgitation is present. Tricuspid Valve There is no tricuspid stenosis. There is a moderate to severe amount of tricuspid regurgitation. There is moderate pulmonary hypertension by echo. RVSP is 52 to 57 mm of Hg , with RA mean of 5 to 10. Pulmonic Valve There is no pulmonic valvular stenosis. There is a mild amount of pulmonic regurgitation. Great Vessels The aortic root is normal size. The inferior vena cava appeared normal and decreased > 50% with respiration (RAP 5-10 mmHg). Effusions There is no pericardial effusion. : SANDRA DENNISON > Saima Hansen
--- NOTE | 2018-02-21 20:24 | PDOC H&P ---
History of Present Illness Admission Date/PCP: 02/21/18 14:06 BIANCA KING MD History of Present Illness: GERALDO DINH is a 77 year old female, She has a history of ischemic dilated cardiomyopathy, presence of AICD she came to the emergency room for evaluation of shortness of breath ,orthopnea. she was evaluated In the emergency room,she was found to have elevated BNP, hyponatremia. Chest x-ray showed bilateral edema. A 2D echo was done today, it demonstrated estimated ejection fraction of left ventricle, 25% Past Medical History Cardiac Medical History: Reports: Congestive Heart Failure, Coronary Artery Disease, Myocardial Infarction, Hyperlipidema, Hypertension Neurological Medical History: Reports: Migraine Endocrine Medical History: Reports: Diabetes Mellitus Type 2 GI Medical History: Reports: Gastroesophageal Reflux Disease Musculoskeltal Medical History: Reports: Arthritis Hematology: Reports: Anemia, Bleeding Tendencies Past Surgical History Past Surgical History: Reports: Cardiac Catheterization - defibrillator, stentsx3, Cholecystectomy, Coronary Stent, Hysterectomy, Internal Defibrillator , Pacemaker - Defibrillator Social History Lives with: Family Smoking Status: Former Smoker Number of Years Smokin Frequency of Alcohol Use: None Hx Recreational Drug Use: No Drugs: None Hx Prescription Drug Abuse: No - Advance Directive Resuscitation Status: Full Code Family History Family History: Reviewed & Not Pertinent Parental Family History Reviewed: Yes Children Family History Reviewed: Yes Sibling(s) Family History Reviewed.: Yes Medication/Allergy Home Medications: Amlodipine Besylate [Norvasc 5 mg Tablet] 5 mg PO DAILY 05/18/17 Carvedilol [Coreg 25 mg Tablet] 25 mg PO Q12 05/18/17 Ergocalciferol (Vitamin D2) [Drisdol 50,000 unit (1.25MG) Capsule] 50,000 unit PO KIM@1200 05/18/17 Furosemide [Lasix 40 mg Tablet] 40 mg PO DAILY 05/18/17 Hydrocodone/Acetaminophen [[place] 5-325 mg Tablet] 1 tab PO Q6H PRN 05/18/17 Losartan Potassium [Cozaar 100 mg Tablet] 100 mg PO DAILY 05/18/17 Metformin HCl [Glucophage] 1,000 mg PO BID 05/18/17 [place]-3 Fatty Acids/Fish Oil [Fish Oil 1,000 mg Capsule] 1 tab PO BID 05/18/17 Pravastatin Sodium [Pravachol] 40 mg PO QPM 05/18/17 Sitagliptin Phosphate [Januvia] 100 mg PO DAILY 05/18/17 Aspirin [Aspirin 325 mg Tablet] 325 mg PO DAILY 02/21/18 Cyanocobalamin (Vitamin B-12) [Vitamin B-12 Inj 1000 Mcg/1 ml Vial] 1,000 mcg IM .MONTHLY 02/21/18 Imipramine HCl 25 mg PO DAILY 02/21/18 Omeprazole [Omeprazole] 1 tab PO DAILY 02/21/18 Allergies/Adverse Reactions: Sulfa (Sulfonamide Antibiotics) Allergy (Mild, Verified 02/21/18 09:56) rash latex Adverse Reaction (Mild, Verified 02/21/18 14:12) ITCHING; BLISTERED SKIN Penicillins Adverse Reaction (Mild, Verified 02/21/18 14:12) rash Review of Systems Constitutional: ABSENT: chills, fever(s), headache(s), weight gain, weight loss Eyes: ABSENT: visual disturbances Ears: ABSENT: hearing changes Cardiovascular: PRESENT: dyspnea on exertion, edema, orthropnea Respiratory: PRESENT: dyspnea Gastrointestinal: ABSENT: abdominal pain, constipation, diarrhea, hematemesis, hematochezia, nausea, vomiting Genitourinary: ABSENT: dysuria, hematuria Musculoskeletal: ABSENT: joint swelling Integumentary: ABSENT: rash, wounds Neurological: ABSENT: abnormal gait, abnormal speech, confusion, dizziness, focal weakness, syncope Psychiatric: ABSENT: anxiety, depression, homidical ideation, suicidal ideation Endocrine: ABSENT: cold intolerance, heat intolerance, menstrual abnormalities, polydipsia, polyuria Hematologic/Lymphatic: ABSENT: easy bleeding, easy bruising, lymphadenopathy Physical Exam Vital Signs: Temp Pulse Resp BP Pulse Ox 97.3 F 84 20 151/68 H 92 02/21/18 16:19 02/21/18 16:19 02/21/18 16:19 02/21/18 16:19 02/21/18 16:19 Intake & Output 02/20/18 02/21/18 02/22/18 06:59 06:59 06:59 Intake Total 125 Output Total 800 Balance -675 Weight 79.9 kg General appearance: PRESENT: mild distress Head exam: PRESENT: atraumatic, normocephalic Eye exam: PRESENT: PERRLA Ear exam: PRESENT: normal external ear exam Mouth exam: PRESENT: moist, tongue midline Neck exam: PRESENT: full ROM Respiratory exam: PRESENT: crackles, rhonchi Cardiovascular exam: PRESENT: RRR, +S1, +S2, systolic murmur Vascular exam: PRESENT: normal capillary refill GI/Abdominal exam: PRESENT: normal bowel sounds, soft Rectal exam: PRESENT: deferred Extremities exam: PRESENT: other - There is no lower extremity edema Neurological exam: PRESENT: alert, CN II-XII grossly intact Psychiatric exam: PRESENT: appropriate affect, normal mood Skin exam: PRESENT: dry, intact, warm Results Impressions: Chest X-Ray 02/21/18 09:44 IMPRESSION: 1. Bilateral airspace disease in the mid and lower lung zones, may be on the basis of edema or infiltrates. Small bilateral pleural effusions. 2. Cardiomegaly and mild pulmonary vascular congestion. Assessment & Plan - Diagnosis (1) Acute systolic heart failure Is this a current diagnosis for this admission?: Yes Plan: Start patient on, continue beta-bc Entresto (2) Ischemic dilated cardiomyopathy Is this a current diagnosis for this admission?: Yes (3) Acute on chronic systolic (congestive) heart failure Is this a current diagnosis for this admission?: Yes (4) SIAD (syndrome of inappropriate antidiuresis) Is this a current diagnosis for this admission?: Yes Plan: She has hyponatremia due to SIADH (5) Type 2 diabetes mellitus Qualifiers: Diabetes mellitus termite control servicer insulin use: without penitentiary use Diabetes mellitus complication status: with neurologic complications Diabetes mellitus complication detail: with polyneuropathy Qualified Code(s): E11.42 - Type 2 diabetes mellitus with diabetic polyneuropathy Is this a current diagnosis for this admission?: Yes
[2018-02-21] MEDS: SACUBITRIL/VALSARTAN 49 MG/51 MG TABLET PO SCH (21:47)
[2018-02-21] MEDS ORDERED: METFORMIN HCL 500 MG TABLET PO SCH (22:00)
[2018-02-21] MEDS ORDERED: BUSPIRONE HCL 10 MG TABLET PO SCH (22:00)
[2018-02-21] MEDS ORDERED: PREGABALIN 100 MG CAPSULE PO SCH (22:00)
[2018-02-21] MEDS ORDERED: ATORVASTATIN CALCIUM 10 MG TABLET PO SCH (22:00)
[2018-02-21] MEDS ORDERED: CARVEDILOL 12.5 MG TABLET PO SCH (22:00)
[2018-02-22] MEDS: ACETAMINOPHEN 325 MG TABLET PO PRN ×2 (00:37→10:39)
[2018-02-22] MEDS: HEPARIN SOD (PORCINE) 5,000 UNIT/ML 1 ML SYRINGE SUBCUT SCH ×3 (05:23→21:57)
[2018-02-22] MEDS ORDERED: LANSOPRAZOLE 15 MG TAB.RAP.DR PO SCH (06:00)
[2018-02-22 06:11] LABS: ABSOLUTE EOSINOPHILS # (AUTO) 0.1 10^3/uL (0.0-0.6); ABSOLUTE LYMPHOCYTES (AUTO) 1.8 10^3/uL (0.5-4.7); ABSOLUTE MONOCYTES (AUTO) 0.6 10^3/uL (0.1-1.4); ABSOLUTE NEUT (AUTO) 2.6 10^3/uL (1.7-8.2); BASOPHILS % (AUTO) 0.6 % (0-2); EOSINOPHILS % (AUTO) 2.2 % (0-6); HEMATOCRIT 35.2 % (36.0-47.0); HEMOGLOBIN 12.3 g/dL (12.0-15.5); LYMPHOCYTES % (AUTO) 34.7 % (13-45); MEAN CORPUSCULAR HGB CONC 34.9 g/dL (32.0-36.0); MEAN CORPUSCULAR VOLUME 92 fl (80-97); MONOCYTES % (AUTO) 11.1 % (3-13); PLATELET COUNT 143 10^3/uL (150-450); RED BLOOD COUNT 3.84 10^6/uL (3.72-5.28); RED CELL DISTRIBUTION WIDTH 20.9 % (11.5-14.0); SEGMENTED NEUTROPHILS % (AUTO) 51.4 % (42-78); TOTAL CELLS COUNTED % (AUTO) 100 %; WHITE BLOOD COUNT 5.1 10^3/uL (4.0-10.5)
[2018-02-22 06:31] LABS: ALANINE AMINOTRANSFERASE 25 U/L (9-52); ALBUMIN 3.6 g/dL (3.5-5.0); ALKALINE PHOSPHATASE 74 U/L (38-126); ANION GAP 11 (5-19); ASPARTATE AMINO TRANSFERASE 23 U/L (14-36); BILIRUBIN,DIRECT 0.3 mg/dL (0.0-0.4); BILIRUBIN,TOTAL 0.5 mg/dL (0.2-1.3); BLOOD UREA NITROGEN 9 mg/dL (7-20); CARBON DIOXIDE 29 mmol/L (22-30); CHLORIDE 87 mmol/L (98-107); GLUCOSE 116 mg/dL (75-110); POTASSIUM 3.3 mmol/L (3.6-5.0); SODIUM 126.7 mmol/L (137-145); TOTAL PROTEIN 6.9 g/dL (6.3-8.2)
[2018-02-22] MEDS ORDERED: NITROGLYCERIN 0.4 MG/TAB 25 TAB/BOTTLE SL PRN (09:50)
[2018-02-22] MEDS ORDERED: HYDROCODONE/ACETAMINOPHEN 5-325 MG TABLET PO PRN (09:50)
[2018-02-22] MEDS ORDERED: (PENDING PHARMACY ID) (Buspirone Hcl [Buspar 30 Mg Tablet] 30 MG) PO SCH (10:00)
[2018-02-22] MEDS ORDERED: LOSARTAN POTASSIUM 50 MG TABLET PO SCH (10:00)
[2018-02-22] MEDS ORDERED: SITAGLIPTIN PHOSPHATE 50 MG TABLET PO SCH (10:00)
[2018-02-22] MEDS ORDERED: (PENDING PHARMACY ID) (Pravastatin Sodium [Pravachol] 40 MG) PO SCH (10:00)
[2018-02-22] MEDS: OMEGA-3 ACID ETHYL ESTERS 1 GM CAPSULE PO SCH (10:16)
[2018-02-22] MEDS: SACUBITRIL/VALSARTAN 49 MG/51 MG TABLET PO SCH ×2 (10:35→21:56)
[2018-02-22] MEDS: DULOXETINE HCL 30 MG CAPSULE.DR PO SCH (10:35)
[2018-02-22] MEDS: FUROSEMIDE 40 MG TABLET PO SCH (10:36)
[2018-02-22] MEDS: CARVEDILOL 12.5 MG TABLET PO SCH ×2 (10:37→21:56)
[2018-02-22] MEDS: POLYETHYLENE GLYCOL 3350 POWDER 17 GM/1 PACKET PO SCH (10:37)
[2018-02-22] MEDS: AMLODIPINE BESYLATE 5 MG TABLET PO SCH (10:37)
[2018-02-22] MEDS: PREGABALIN 100 MG CAPSULE PO SCH ×2 (10:38→21:55)
[2018-02-22] MEDS: LANSOPRAZOLE 15 MG TAB.RAP.DR PO SCH (10:38)
[2018-02-22] MEDS: BUSPIRONE HCL 10 MG TABLET PO SCH ×2 (10:38→21:57)
[2018-02-22] MEDS: SITAGLIPTIN PHOSPHATE 50 MG TABLET PO SCH (10:38)
[2018-02-22] MEDS: INSULIN DETEMIR 100 UNIT/ML 3 ML PEN SUBCUT SCH (13:18)
[2018-02-22] MEDS ORDERED: POTASSI CL 20 MEQ/50 ML RIDER 20 MEQ/50 ML RTUPB IV ONE (19:00)
--- NOTE | 2018-02-22 21:49 | PDOC PROGRESS REPORT ---
Subjective Progress Note for:: 02/22/18 Subjective:: Patient was seen by the bedside, she said she feels better Reason For Visit: ACUTE SYSTOLIC HEART FAILURE,HYPONATREMIA Physical Exam Vital Signs: Temp Pulse Resp BP Pulse Ox 97.6 F 37 L 16 162/83 H 100 02/22/18 19:16 02/22/18 19:16 02/22/18 19:16 02/22/18 19:16 02/22/18 19:16 Intake & Output 02/21/18 02/22/18 02/23/18 06:59 06:59 06:59 Intake Total 575 984 Output Total 1650 850 Balance -1075 134 Weight 80.2 kg General appearance: PRESENT: no acute distress Eye exam: PRESENT: PERRLA Respiratory exam: PRESENT: clear to auscultation rom Cardiovascular exam: PRESENT: +S1, +S2, systolic murmur GI/Abdominal exam: PRESENT: soft Neurological exam: PRESENT: alert Results Laboratory Results: 02/22/18 05:56 02/22/18 05:56 02/22/18 02/22/18 02/22/18 05:56 05:56 05:56 WBC 5.1 RBC 3.84 Hgb 12.3 Hct 35.2 L MCV 92 MCH 32.0 MCHC 34.9 RDW 20.9 H Plt Count 143 L Seg Neutrophils % 51.4 Lymphocytes % 34.7 Monocytes % 11.1 Eosinophils % 2.2 Basophils % 0.6 Absolute Neutrophils 2.6 Absolute Lymphocytes 1.8 Absolute Monocytes 0.6 Absolute Eosinophils 0.1 Absolute Basophils 0.0 Sodium 126.7 L Potassium 3.3 L Chloride 87 L Carbon Dioxide 29 Anion Gap 11 BUN 9 Creatinine 0.70 Est GFR ( Amer) > 60 Est GFR (Non-Af Amer) > 60 Glucose 116 H Calcium 9.0 Total Bilirubin 0.5 AST 23 ALT 25 Alkaline Phosphatase 74 Ammonia < 8.7 L Total Protein 6.9 Albumin 3.6 02/21/18 02/21/18 02/22/18 19:50 19:50 01:52 Creatine Kinase 59 61 Troponin I < 0.012 02/22/18 01:52 Creatine Kinase Troponin I < 0.012 Impressions: Chest X-Ray 02/21/18 09:44 IMPRESSION: 1. Bilateral airspace disease in the mid and lower lung zones, may be on the basis of edema or infiltrates. Small bilateral pleural effusions. 2. Cardiomegaly and mild pulmonary vascular congestion. Assessment & Plan - Diagnosis (1) Acute systolic heart failure Is this a current diagnosis for this admission?: Yes Plan: Continue Entresto (2) Ischemic dilated cardiomyopathy Is this a current diagnosis for this admission?: Yes (3) Acute on chronic systolic (congestive) heart failure Is this a current diagnosis for this admission?: Yes (4) SIAD (syndrome of inappropriate antidiuresis) Is this a current diagnosis for this admission?: Yes Plan: Fluid restriction, 1500 cc in 24 hours (5) Type 2 diabetes mellitus Qualifiers: Diabetes mellitus half-way insulin use: without terminal superintendent use Diabetes mellitus complication status: with neurologic complications Diabetes mellitus complication detail: with polyneuropathy Qualified Code(s): E11.42 - Type 2 diabetes mellitus with diabetic polyneuropathy Is this a current diagnosis for this admission?: Yes
[2018-02-22] MEDS: ATORVASTATIN CALCIUM 10 MG TABLET PO SCH (21:56)
[2018-02-22] MEDS: IMIPRAMINE HCL 25 MG TABLET PO SCH (22:38)
[2018-02-23] MEDS: HEPARIN SOD (PORCINE) 5,000 UNIT/ML 1 ML SYRINGE SUBCUT SCH ×3 (05:20→21:58)
[2018-02-23] MEDS: LANSOPRAZOLE 15 MG TAB.RAP.DR PO SCH (06:21)
[2018-02-23 06:24] LABS: ABSOLUTE EOSINOPHILS # (AUTO) 0.1 10^3/uL (0.0-0.6); ABSOLUTE LYMPHOCYTES (AUTO) 1.5 10^3/uL (0.5-4.7); ABSOLUTE MONOCYTES (AUTO) 0.7 10^3/uL (0.1-1.4); ABSOLUTE NEUT (AUTO) 2.3 10^3/uL (1.7-8.2); BASOPHILS % (AUTO) 0.6 % (0-2); EOSINOPHILS % (AUTO) 2.1 % (0-6); HEMATOCRIT 35.6 % (36.0-47.0); HEMOGLOBIN 12.7 g/dL (12.0-15.5); LYMPHOCYTES % (AUTO) 32.8 % (13-45); MEAN CORPUSCULAR HEMOGLOBIN 32.2 pg (27.0-33.4); MEAN CORPUSCULAR HGB CONC 35.7 g/dL (32.0-36.0); MEAN CORPUSCULAR VOLUME 90 fl (80-97); MONOCYTES % (AUTO) 14.1 % (3-13); PLATELET COUNT 142 10^3/uL (150-450); RED BLOOD COUNT 3.94 10^6/uL (3.72-5.28); RED CELL DISTRIBUTION WIDTH 21.1 % (11.5-14.0); SEGMENTED NEUTROPHILS % (AUTO) 50.4 % (42-78); TOTAL CELLS COUNTED % (AUTO) 100 %; WHITE BLOOD COUNT 4.6 10^3/uL (4.0-10.5)
[2018-02-23 06:48] LABS: ALANINE AMINOTRANSFERASE 19 U/L (9-52); ALBUMIN 3.5 g/dL (3.5-5.0); ALKALINE PHOSPHATASE 70 U/L (38-126); ANION GAP 10 (5-19); ASPARTATE AMINO TRANSFERASE 21 U/L (14-36); BILIRUBIN,DIRECT 0.3 mg/dL (0.0-0.4); BILIRUBIN,TOTAL 0.4 mg/dL (0.2-1.3); BLOOD UREA NITROGEN 10 mg/dL (7-20); CALCIUM 8.6 mg/dL (8.4-10.2); CARBON DIOXIDE 28 mmol/L (22-30); CHLORIDE 87 mmol/L (98-107); GLUCOSE 118 mg/dL (75-110); POTASSIUM 3.3 mmol/L (3.6-5.0); SODIUM 125.2 mmol/L (137-145); TOTAL PROTEIN 6.5 g/dL (6.3-8.2)
[2018-02-23] MEDS: CARVEDILOL 12.5 MG TABLET PO SCH ×2 (09:24→21:56)
[2018-02-23] MEDS: DULOXETINE HCL 30 MG CAPSULE.DR PO SCH (09:25)
[2018-02-23] MEDS: BUSPIRONE HCL 10 MG TABLET PO SCH ×2 (09:25→21:57)
[2018-02-23] MEDS: FUROSEMIDE 40 MG TABLET PO SCH (09:26)
[2018-02-23] MEDS: SACUBITRIL/VALSARTAN 49 MG/51 MG TABLET PO SCH ×2 (09:26→21:56)
[2018-02-23] MEDS: SITAGLIPTIN PHOSPHATE 50 MG TABLET PO SCH (09:26)
[2018-02-23] MEDS: PREGABALIN 100 MG CAPSULE PO SCH ×2 (09:28→21:57)
[2018-02-23] MEDS: POLYETHYLENE GLYCOL 3350 POWDER 17 GM/1 PACKET PO SCH (09:28)
[2018-02-23] MEDS: INSULIN DETEMIR 100 UNIT/ML 3 ML PEN SUBCUT SCH (09:28)
[2018-02-23] MEDS: AMLODIPINE BESYLATE 5 MG TABLET PO SCH (09:28)
[2018-02-23] MEDS ORDERED: POTASSIUM CHLORIDE 10 MEQ CAPSULE.ER PO ONE (13:00)
[2018-02-23] MEDS: ACETAMINOPHEN 325 MG TABLET PO PRN (17:40)
[2018-02-23] MEDS: DIPHENHYDRAMINE HCL 25 MG CAPSULE PO PRN (21:49)
--- NOTE | 2018-02-23 21:51 | PDOC PROGRESS REPORT ---
Subjective Progress Note for:: 02/23/18 Subjective:: She was admitted for the management of acute systolic heart failure, with a background of chronic systolic heart failure there is also associated hyponatremia of SIADH type Reason For Visit: ACUTE SYSTOLIC HEART FAILURE,HYPONATREMIA Physical Exam Vital Signs: Temp Pulse Resp BP Pulse Ox 97.7 F 80 16 100/40 L 99 02/23/18 19:04 02/23/18 19:04 02/23/18 19:04 02/23/18 19:04 02/23/18 19:04 Intake & Output 02/22/18 02/23/18 02/24/18 06:59 06:59 06:59 Intake Total 575 1034 347 Output Total 1650 850 600 Balance -1075 184 -253 Weight 80.2 kg 80.1 kg General appearance: PRESENT: no acute distress Eye exam: PRESENT: PERRLA Respiratory exam: PRESENT: clear to auscultation rom Cardiovascular exam: PRESENT: +S1, +S2, systolic murmur GI/Abdominal exam: PRESENT: soft Neurological exam: PRESENT: alert, CN II-XII grossly intact Results Laboratory Results: 02/23/18 05:39 02/23/18 05:39 02/23/18 02/23/18 02/23/18 05:39 05:39 05:39 WBC 4.6 RBC 3.94 Hgb 12.7 Hct 35.6 L MCV 90 MCH 32.2 MCHC 35.7 RDW 21.1 H Plt Count 142 L Seg Neutrophils % 50.4 Lymphocytes % 32.8 Monocytes % 14.1 H Eosinophils % 2.1 Basophils % 0.6 Absolute Neutrophils 2.3 Absolute Lymphocytes 1.5 Absolute Monocytes 0.7 Absolute Eosinophils 0.1 Absolute Basophils 0.0 Sodium 125.2 L Potassium 3.3 L Chloride 87 L Carbon Dioxide 28 Anion Gap 10 BUN 10 Creatinine 0.76 Est GFR ( Amer) > 60 Est GFR (Non-Af Amer) > 60 Glucose 118 H Calcium 8.6 Total Bilirubin 0.4 AST 21 ALT 19 Alkaline Phosphatase 70 Ammonia 18.8 Total Protein 6.5 Albumin 3.5 02/21/18 02/21/18 02/22/18 19:50 19:50 01:52 Creatine Kinase 59 61 Troponin I < 0.012 02/22/18 01:52 Creatine Kinase Troponin I < 0.012 Impressions: Chest X-Ray 02/21/18 09:44 IMPRESSION: 1. Bilateral airspace disease in the mid and lower lung zones, may be on the basis of edema or infiltrates. Small bilateral pleural effusions. 2. Cardiomegaly and mild pulmonary vascular congestion. Assessment & Plan - Diagnosis (1) Acute systolic heart failure Is this a current diagnosis for this admission?: Yes Plan: Continue present treatment most likely discharge home tomorrow (2) Ischemic dilated cardiomyopathy Is this a current diagnosis for this admission?: Yes (3) Acute on chronic systolic (congestive) heart failure Is this a current diagnosis for this admission?: Yes (4) SIAD (syndrome of inappropriate antidiuresis) Is this a current diagnosis for this admission?: Yes (5) Type 2 diabetes mellitus Qualifiers: Diabetes mellitus senior living insulin use: without senior living use Diabetes mellitus complication status: with neurologic complications Diabetes mellitus complication detail: with polyneuropathy Qualified Code(s): E11.42 - Type 2 diabetes mellitus with diabetic polyneuropathy Is this a current diagnosis for this admission?: Yes (6) Hypokalemia Is this a current diagnosis for this admission?: Yes Plan: Replace potassium
[2018-02-23] MEDS: ATORVASTATIN CALCIUM 10 MG TABLET PO SCH (21:56)
[2018-02-23] MEDS: IMIPRAMINE HCL 25 MG TABLET PO SCH (21:57)
[2018-02-23 22:31] LABS: ALANINE AMINOTRANSFERASE 26 U/L (9-52); ALBUMIN 3.7 g/dL (3.5-5.0); ALKALINE PHOSPHATASE 71 U/L (38-126); ANION GAP 12 (5-19); ASPARTATE AMINO TRANSFERASE 23 U/L (14-36); BILIRUBIN,DIRECT 0.2 mg/dL (0.0-0.4); BILIRUBIN,TOTAL 0.3 mg/dL (0.2-1.3); BLOOD UREA NITROGEN 14 mg/dL (7-20); CALCIUM 9.3 mg/dL (8.4-10.2); CARBON DIOXIDE 28 mmol/L (22-30); CHLORIDE 88 mmol/L (98-107); GLUCOSE 127 mg/dL (75-110); POTASSIUM 4.1 mmol/L (3.6-5.0); SODIUM 127.5 mmol/L (137-145)
[2018-02-24] MEDS: LANSOPRAZOLE 15 MG TAB.RAP.DR PO SCH (05:13)
[2018-02-24] MEDS: HEPARIN SOD (PORCINE) 5,000 UNIT/ML 1 ML SYRINGE SUBCUT SCH ×3 (05:13→22:04)
[2018-02-24 06:09] LABS: ABSOLUTE EOSINOPHILS # (AUTO) 0.1 10^3/uL (0.0-0.6); ABSOLUTE LYMPHOCYTES (AUTO) 1.7 10^3/uL (0.5-4.7); ABSOLUTE MONOCYTES (AUTO) 0.6 10^3/uL (0.1-1.4); ABSOLUTE NEUT (AUTO) 2.2 10^3/uL (1.7-8.2); BASOPHILS % (AUTO) 0.6 % (0-2); EOSINOPHILS % (AUTO) 1.9 % (0-6); HEMATOCRIT 35.8 % (36.0-47.0); HEMOGLOBIN 12.4 g/dL (12.0-15.5); LYMPHOCYTES % (AUTO) 36.5 % (13-45); MEAN CORPUSCULAR HEMOGLOBIN 31.7 pg (27.0-33.4); MEAN CORPUSCULAR HGB CONC 34.8 g/dL (32.0-36.0); MEAN CORPUSCULAR VOLUME 91 fl (80-97); MONOCYTES % (AUTO) 12.9 % (3-13); PLATELET COUNT 148 10^3/uL (150-450); RED BLOOD COUNT 3.93 10^6/uL (3.72-5.28); RED CELL DISTRIBUTION WIDTH 20.9 % (11.5-14.0); SEGMENTED NEUTROPHILS % (AUTO) 48.1 % (42-78); TOTAL CELLS COUNTED % (AUTO) 100 %; WHITE BLOOD COUNT 4.5 10^3/uL (4.0-10.5)
[2018-02-24 06:30] LABS: ALANINE AMINOTRANSFERASE 23 U/L (9-52); ALBUMIN 3.4 g/dL (3.5-5.0); ALKALINE PHOSPHATASE 61 U/L (38-126); ANION GAP 11 (5-19); ASPARTATE AMINO TRANSFERASE 22 U/L (14-36); BILIRUBIN,DIRECT 0.3 mg/dL (0.0-0.4); BILIRUBIN,TOTAL 0.4 mg/dL (0.2-1.3); BLOOD UREA NITROGEN 14 mg/dL (7-20); CALCIUM 8.9 mg/dL (8.4-10.2); CARBON DIOXIDE 26 mmol/L (22-30); CHLORIDE 92 mmol/L (98-107); GLUCOSE 108 mg/dL (75-110); POTASSIUM 3.8 mmol/L (3.6-5.0); SODIUM 128.7 mmol/L (137-145); TOTAL PROTEIN 6.5 g/dL (6.3-8.2)
[2018-02-24] MEDS: PREGABALIN 100 MG CAPSULE PO SCH ×2 (09:02→22:03)
[2018-02-24] MEDS: BUSPIRONE HCL 10 MG TABLET PO SCH ×2 (09:02→22:06)
[2018-02-24] MEDS: POLYETHYLENE GLYCOL 3350 POWDER 17 GM/1 PACKET PO SCH (09:03)
[2018-02-24] MEDS: CARVEDILOL 12.5 MG TABLET PO SCH ×2 (09:05→22:03)
[2018-02-24] MEDS: DULOXETINE HCL 30 MG CAPSULE.DR PO SCH (09:06)
[2018-02-24] MEDS: AMLODIPINE BESYLATE 5 MG TABLET PO SCH (09:09)
[2018-02-24] MEDS: ACETAMINOPHEN 325 MG TABLET PO PRN (09:09)
[2018-02-24] MEDS: FUROSEMIDE 40 MG TABLET PO SCH (09:09)
[2018-02-24] MEDS: SITAGLIPTIN PHOSPHATE 50 MG TABLET PO SCH (09:09)
[2018-02-24] MEDS: SACUBITRIL/VALSARTAN 49 MG/51 MG TABLET PO SCH ×2 (09:09→22:04)
[2018-02-24] MEDS: DIPHENHYDRAMINE HCL 25 MG CAPSULE PO PRN ×3 (09:09→22:04)
[2018-02-24] MEDS: INSULIN DETEMIR 100 UNIT/ML 3 ML PEN SUBCUT SCH ×2 (14:49→16:24)
--- NOTE | 2018-02-24 21:04 | PDOC PROGRESS REPORT ---
Subjective Progress Note for:: 02/24/18 Subjective:: She was seen by the bedside, she complained of pruritus around the mouth, she has SIADH on fluid restriction Reason For Visit: ACUTE SYSTOLIC HEART FAILURE,HYPONATREMIA Physical Exam Vital Signs: Temp Pulse Resp BP Pulse Ox 98.3 F 76 18 116/57 L 95 02/24/18 19:25 02/24/18 19:25 02/24/18 19:25 02/24/18 19:25 02/24/18 19:25 Intake & Output 02/23/18 02/24/18 02/25/18 06:59 06:59 06:59 Intake Total 1034 347 477 Output Total 850 1025 1000 Balance 131 -123 -823 Weight 80.1 kg 80.6 kg General appearance: PRESENT: no acute distress Eye exam: PRESENT: PERRLA Respiratory exam: PRESENT: clear to auscultation rom Cardiovascular exam: PRESENT: +S1, +S2 GI/Abdominal exam: PRESENT: soft Neurological exam: PRESENT: alert, CN II-XII grossly intact Results Laboratory Results: 02/24/18 05:55 02/24/18 05:55 02/23/18 02/24/18 02/24/18 22:06 05:55 05:55 WBC 4.5 RBC 3.93 Hgb 12.4 Hct 35.8 L MCV 91 MCH 31.7 MCHC 34.8 RDW 20.9 H Plt Count 148 L Seg Neutrophils % 48.1 Lymphocytes % 36.5 Monocytes % 12.9 Eosinophils % 1.9 Basophils % 0.6 Absolute Neutrophils 2.2 Absolute Lymphocytes 1.7 Absolute Monocytes 0.6 Absolute Eosinophils 0.1 Absolute Basophils 0.0 Sodium 127.5 L 128.7 L Potassium 4.1 3.8 Chloride 88 L 92 L Carbon Dioxide 28 26 Anion Gap 12 11 BUN 14 14 Creatinine 0.88 0.76 Est GFR ( Amer) > 60 > 60 Est GFR (Non-Af Amer) > 60 > 60 Glucose 127 H 108 Calcium 9.3 8.9 Total Bilirubin 0.3 0.4 AST 23 22 ALT 26 23 Alkaline Phosphatase 71 61 Ammonia Total Protein 7.0 6.5 Albumin 3.7 3.4 L 02/24/18 05:55 WBC RBC Hgb Hct MCV MCH MCHC RDW Plt Count Seg Neutrophils % Lymphocytes % Monocytes % Eosinophils % Basophils % Absolute Neutrophils Absolute Lymphocytes Absolute Monocytes Absolute Eosinophils Absolute Basophils Sodium Potassium Chloride Carbon Dioxide Anion Gap BUN Creatinine Est GFR ( Amer) Est GFR (Non-Af Amer) Glucose Calcium Total Bilirubin AST ALT Alkaline Phosphatase Ammonia < 8.7 L Total Protein Albumin 02/21/18 02/21/18 02/22/18 19:50 19:50 01:52 Creatine Kinase 59 61 Troponin I < 0.012 02/22/18 01:52 Creatine Kinase Troponin I < 0.012 Impressions: Chest X-Ray 02/21/18 09:44 IMPRESSION: 1. Bilateral airspace disease in the mid and lower lung zones, may be on the basis of edema or infiltrates. Small bilateral pleural effusions. 2. Cardiomegaly and mild pulmonary vascular congestion. Assessment & Plan - Diagnosis (1) Acute systolic heart failure Is this a current diagnosis for this admission?: Yes Plan: Continue treatment (2) Ischemic dilated cardiomyopathy Is this a current diagnosis for this admission?: Yes (3) Acute on chronic systolic (congestive) heart failure Is this a current diagnosis for this admission?: Yes (4) SIAD (syndrome of inappropriate antidiuresis) Is this a current diagnosis for this admission?: Yes (5) Type 2 diabetes mellitus Qualifiers: Diabetes mellitus termite exterminator helper insulin use: without termite exterminator helper use Diabetes mellitus complication status: with neurologic complications Diabetes mellitus complication detail: with polyneuropathy Qualified Code(s): E11.42 - Type 2 diabetes mellitus with diabetic polyneuropathy Is this a current diagnosis for this admission?: Yes (6) Hypokalemia Is this a current diagnosis for this admission?: Yes
--- NOTE | 2018-02-24 21:11 | PDOC DISCHARGE SUMMARY ---
General - Admit/Disc Date/PCP Admission Date/Primary Care Provider: 02/21/18 14:06 BIANCA KING MD Discharge Date: 02/25/18 - Discharge Diagnosis (1) Acute systolic heart failure Is this a current diagnosis for this admission?: Yes (2) Ischemic dilated cardiomyopathy Is this a current diagnosis for this admission?: Yes (3) Acute on chronic systolic (congestive) heart failure Is this a current diagnosis for this admission?: Yes (4) SIAD (syndrome of inappropriate antidiuresis) Is this a current diagnosis for this admission?: Yes (5) Type 2 diabetes mellitus Is this a current diagnosis for this admission?: Yes (6) Hypokalemia Is this a current diagnosis for this admission?: Yes (7) Pulmonary hypertension Is this a current diagnosis for this admission?: Yes - Additional Information Resuscitation Status: Full Code Discharge Diet: Cardiac, Diabetic Discharge Activity: Activity As Tolerated, Balance Activity w/Rest, Weigh Daily Prescriptions: Sacubitril/Valsartan [Entresto 49 mg/51 mg Tablet] 1 tab PO Q12 #180 tablet Home Medications: Amlodipine Besylate [Norvasc 5 mg Tablet] 5 mg PO DAILY 02/22/18 Buspirone HCl [Buspar 30 mg Tablet] 30 mg PO Q12 02/22/18 Carvedilol [Coreg 25 mg Tablet] 25 mg PO Q12 02/22/18 Cyanocobalamin (Vitamin B-12) [Vitamin B-12 Inj 1000 Mcg/1 ml Vial] 1,000 mcg IM [id number] 02/22/18 Duloxetine HCl [Cymbalta] 30 mg PO DAILY 02/22/18 Ergocalciferol (Vitamin D2) [Drisdol 50,000 unit (1.25MG) Capsule] 50,000 unit PO KIM@1000 02/22/18 Furosemide [Lasix 40 mg Tablet] 40 mg PO DAILY 02/22/18 Hydrocodone Bit/Acetaminophen [Hydrocodon-Acetaminophen 5-325] 1 tab PO Q6HP PRN 02/22/18 Imipramine HCl [Tofranil 25 mg Tablet] 25 mg PO QHS 02/22/18 Insulin Detemir [Levemir Flextouch] 20 units SQ DAILY 02/22/18 Nitroglycerin [Nitrostat] 0.4 mg SL Q5MP PRN 02/22/18 Omeprazole 20 mg PO DAILY 02/22/18 Polyethylene Glycol 3350 [Miralax Powder 17 gm/Packet] 17 gm PO DAILY 02/22/18 Pravastatin Sodium [Pravachol] 40 mg PO DAILY 02/22/18 Pregabalin [Lyrica] 300 mg PO Q12 02/22/18 Sitagliptin Phosphate [Januvia] 100 mg PO DAILY 02/22/18 Dextrose 50%-Water [Dextrose Inj 50% Syringe (25 gm/50 ml)] 12.5 gm IV PRN PRN disp.syrin 02/24/18 Dextrose [Glutose 40% Gel 15 gm Tube] 30 gm PO PRN PRN tube 02/24/18 Diphenhydramine HCl [Benadryl 25 mg Capsule] 25 mg PO Q6HP PRN capsule Insulin Detemir [Levemir Insulin 100 units/mL] 20 unit SUBCUT DAILY insuln.pen 02/24/18 Sacubitril/Valsartan [Entresto 49 mg/51 mg Tablet] 1 tab PO Q12 #180 tablet 09/08 History of Present Illness History of Present Illness: GERALDO DINH is a 77 year old female, She has a history of ischemic dilated cardiomyopathy, presence of AICD she came to the emergency room for evaluation of shortness of breath ,orthopnea. she was evaluated In the emergency room,she was found to have elevated BNP, hyponatremia. Chest x-ray showed bilateral edema. A 2D echo was done today, it demonstrated estimated ejection fraction of left ventricle, 25% Hospital Course Hospital Course: Patient was admitted for the management of acute systolic heart failure, 2D echo was done it demonstrated ejection fraction left ventricular 25%, she was started on Entresto, Rocephin was discontinued, she was diuresed with furosemide. She also have hyponatremia due to SIADH, she was treated with fluid restriction.The 2D echo showed dilated left ventricle, pulmonary hypertension Physical Exam Vital Signs: Temp Pulse Resp BP Pulse Ox 98.3 F 76 18 116/57 L 95 02/24/18 19:25 02/24/18 19:25 02/24/18 19:25 02/24/18 19:25 02/24/18 19:25 Intake & Output 02/23/18 02/24/18 02/25/18 06:59 06:59 06:59 Intake Total 1034 347 477 Output Total 444 1025 1000 Balance 294 -608 -773 Weight 80.1 kg 80.6 kg General appearance: PRESENT: no acute distress Head exam: PRESENT: atraumatic, normocephalic Eye exam: PRESENT: conjunctiva pink, EOMI, PERRLA Ear exam: PRESENT: normal external ear exam Mouth exam: PRESENT: moist, tongue midline Neck exam: PRESENT: full ROM Respiratory exam: PRESENT: clear to auscultation rom Cardiovascular exam: PRESENT: RRR, +S1, +S2 Vascular exam: PRESENT: normal capillary refill GI/Abdominal exam: PRESENT: normal bowel sounds, soft Rectal exam: PRESENT: deferred Neurological exam: PRESENT: alert, CN II-XII grossly intact Psychiatric exam: PRESENT: appropriate affect Results Laboratory Results: 02/24/18 05:55 02/24/18 05:55 02/23/18 02/24/18 02/24/18 22:06 05:55 05:55 WBC 4.5 RBC 3.93 Hgb 12.4 Hct 35.8 L MCV 91 MCH 31.7 MCHC 34.8 RDW 20.9 H Plt Count 148 L Seg Neutrophils % 48.1 Lymphocytes % 36.5 Monocytes % 12.9 Eosinophils % 1.9 Basophils % 0.6 Absolute Neutrophils 2.2 Absolute Lymphocytes 1.7 Absolute Monocytes 0.6 Absolute Eosinophils 0.1 Absolute Basophils 0.0 Sodium 127.5 L 128.7 L Potassium 4.1 3.8 Chloride 88 L 92 L Carbon Dioxide 28 26 Anion Gap 12 11 BUN 14 14 Creatinine 0.88 0.76 Est GFR ( Amer) > 60 > 60 Est GFR (Non-Af Amer) > 60 > 60 Glucose 127 H 108 Calcium 9.3 8.9 Total Bilirubin 0.3 0.4 AST 23 22 ALT 26 23 Alkaline Phosphatase 71 61 Ammonia Total Protein 7.0 6.5 Albumin 3.7 3.4 L 02/24/18 05:55 WBC RBC Hgb Hct MCV MCH MCHC RDW Plt Count Seg Neutrophils % Lymphocytes % Monocytes % Eosinophils % Basophils % Absolute Neutrophils Absolute Lymphocytes Absolute Monocytes Absolute Eosinophils Absolute Basophils Sodium Potassium Chloride Carbon Dioxide Anion Gap BUN Creatinine Est GFR ( Amer) Est GFR (Non-Af Amer) Glucose Calcium Total Bilirubin AST ALT Alkaline Phosphatase Ammonia < 8.7 L Total Protein Albumin 02/21/18 02/21/18 02/22/18 19:50 19:50 01:52 Creatine Kinase 59 61 Troponin I < 0.012 02/22/18 01:52 Creatine Kinase Troponin I < 0.012 Impressions: Chest X-Ray 02/21/18 09:44 IMPRESSION: 1. Bilateral airspace disease in the mid and lower lung zones, may be on the basis of edema or infiltrates. Small bilateral pleural effusions. 2. Cardiomegaly and mild pulmonary vascular congestion. Qualifiers - * PATIENT BEING DISCHARGED WITH ANY OF THE FOLLOWING DIAGNOSIS: No
[2018-02-24] MEDS: ATORVASTATIN CALCIUM 10 MG TABLET PO SCH (22:04)
[2018-02-24] MEDS: IMIPRAMINE HCL 25 MG TABLET PO SCH (22:05)
[2018-02-25] MEDS: LANSOPRAZOLE 15 MG TAB.RAP.DR PO SCH (05:31)
[2018-02-25] MEDS: HEPARIN SOD (PORCINE) 5,000 UNIT/ML 1 ML SYRINGE SUBCUT SCH (05:31)
[2018-02-25] MEDS: ACETAMINOPHEN 325 MG TABLET PO PRN (07:43)
[2018-02-25] MEDS: BUSPIRONE HCL 10 MG TABLET PO SCH (09:16)
[2018-02-25] MEDS: INSULIN DETEMIR 100 UNIT/ML 3 ML PEN SUBCUT SCH (09:18)
[2018-02-25] MEDS: PREGABALIN 100 MG CAPSULE PO SCH (09:19)
[2018-02-25] MEDS: POLYETHYLENE GLYCOL 3350 POWDER 17 GM/1 PACKET PO SCH (09:19)
[2018-02-25] MEDS: CARVEDILOL 12.5 MG TABLET PO SCH (09:23)
[2018-02-25] MEDS: SACUBITRIL/VALSARTAN 49 MG/51 MG TABLET PO SCH (09:24)
[2018-02-25] MEDS: DULOXETINE HCL 30 MG CAPSULE.DR PO SCH (09:24)
[2018-02-25] MEDS: SITAGLIPTIN PHOSPHATE 50 MG TABLET PO SCH (09:25)
[2018-02-25] MEDS: FUROSEMIDE 40 MG TABLET PO SCH (09:26)
[2018-02-25] MEDS: AMLODIPINE BESYLATE 5 MG TABLET PO SCH (09:27)
[2018-02-25 09:39] VITALS: BP 116/57
[2018-02-27] MEDS ORDERED: ERGOCALCIFEROL (VITAMIN D2) 50000 UNIT (1.25 MG) CAPSULE PO SCH (12:00)
== END 2018-02-25 10:06 | disposition home or self-care (01) | DRG 292 ==
LOC: ER 09:40 → EH 14:06 → 3S 16:25
PROVIDERS: ADMIT Internal Medicine; ATTEND Internal Medicine
DX: I11.0 Hypertensive heart disease with heart failure (principal); E22.2 Syndrome of inappropriate secretion of antidiuretic hormone; I50.23 Acute on chronic systolic (congestive) heart failure; I25.5 Ischemic cardiomyopathy; E11.42 Type 2 diabetes mellitus with diabetic polyneuropathy; I25.10 Atherosclerotic heart disease of native coronary artery without angina pectoris; M19.90 Unspecified osteoarthritis, unspecified site; G43.909 Migraine, unspecified, not intractable, without status migrainosus; K21.9 Gastro-esophageal reflux disease without esophagitis; I27.20 Pulmonary hypertension, unspecified; Z88.0 Allergy status to penicillin; Z88.2 Allergy status to sulfonamides; Z91.040 Latex allergy status; I25.2 Old myocardial infarction; Z95.5 Presence of coronary angioplasty implant and graft; Z95.810 Presence of automatic (implantable) cardiac defibrillator; Z87.891 Personal history of nicotine dependence; Z90.49 Acquired absence of other specified parts of digestive tract; Z90.710 Acquired absence of both cervix and uterus; Z23 Encounter for immunization
CPT/HCPCS: 36415; 71045; 80048; 80053; 80076; 80307; 81001; 82140; 82150; 82550; 82553; 82962; 83036; 83690; 83735; 83880; 83930; 83935; 84100; 84300; 84439; 84443; 84484; 85025; 85379; 85610; 85730; 87040; 87086; 90686; 93005; 93010; 93306; 94640; 99285; J1644; J1815; J1940; J3480; J3490; J7620

== ENCOUNTER → 2018-03-20 | Outpatient (CLI) | payer MEDICARE ==
--- NOTE | 2018-03-21 09:54 | RADIOLOGY REPORT (SQ) ---
EXAM DESCRIPTION: PET CT SKULL/THIGH COMPLETED DATE/TIME: 03/20/2018 8:08 pm REASON FOR STUDY: LUNG CANCER C34.90 MALIGNANT NEOPLASM OF UNSP PART OF UNSP BRONCHUS OR L COMPARISON: 11/21/2017. RADIONUCLIDE AND DOSE: 10 mCi F18 FDG The route of agent administration: Intravenous FASTING BLOOD SUGAR: 87 mg/dl CONTRAST TYPE AND DOSE: No CT contrast given. TECHNIQUE: Blood glucose level was verified. Above dose of FDG was injected intravenously. 2-D seg mented attenuation correction images were obtained from the base of the skull to the midthighs. Nonc ontrast CT images were obtained for attenuation correction and fusion with emission images. CT image s were performed without oral or intravenous contrast and are not sensitive for parenchymal lesions. A series of overlapping emission PET images were obtained. [facility] by the radiologist. Images stored on PACS. LIMITATIONS: None. FINDINGS: HEAD AND NECK: No areas of abnormal metabolic activity in the soft tissues of the head and neck. CHEST: Mediastinal adenopathy as follows: Left paratracheal lymph node (image 48) measuring 1.3 cm. Prior measurements 1.2 x 1.6 cm. Mean SUV 2.86. Prior value 4. Right paratracheal lymph node (image 63) measuring 1.9 x 2.5 cm. Prior measurements 2 x 2.5 cm. Lauren n SUV 4.36. Prior value 6.2. Aorta pulmonary lymph node (image 70) measuring 1.3 x 1.6 cm. Prior measurements 1.3 x 1.9 cm. Mean SUV 3.02. Prior value 5.5. Subcarinal lymph node (image 76) measuring 1.7 x 2.8 cm. Prior measurements 2 x 4 cm. Mean SUV 3.49 . Prior value 7.3. Small right hilar and infrahilar lymph nodes with mean SUV value 3.44 and 3.04 respectively. Small pleural effusions, not present on the prior study. ABDOMEN AND PELVIS: No areas of abnormal metabolic activity in the abdomen or pelvis. Expected physi ologic activity is present in the genitourinary system and bowel. PROXIMAL LOWER EXTREMITIES: No areas of abnormal metabolic activity in the soft tissues of the lower extremities. BONES: No abnormal metabolic activity in the visualized skeleton. ADDITIONAL CT FINDINGS: Previous resection of the left lobe of the thyroid. Extensive coronary arter y calcifications. Renal cysts. Colonic diverticulosis. No additional significant findings on the n oncontrast CT images. OTHER: No other significant findings. Background blood pool activity mean SUV 1.53. Background live r activity mean SUV 2.13. IMPRESSION: 1. MEDIASTINAL ADENOPATHY DESCRIBED WHICH HAS IMPROVED SINCE THE PRIOR STUDY. SMALL PLEURAL EFFUS IONS HAVE DEVELOPED SINCE THE PRIOR STUDY. 2. NO OTHER SIGNIFICANT FINDINGS ON PET IMAGING. INCIDENTAL CT FINDINGS ABOVE. TECHNICAL DOCUMENTATION: JOB ID: [id number] [employer]- All Rights Reserved Reading location - IP/workstation name: [facility] [email or web address]
== END ==
LOC: RAD 16:37
PROVIDERS: ATTEND Internal Medicine Medical Oncology
DX: C34.90 Malignant neoplasm of unspecified part of unspecified bronchus or lung (principal); R59.0 Localized enlarged lymph nodes; J90 Pleural effusion, not elsewhere classified
CPT/HCPCS: 78815; A9552